=== PATIENT | female | born 1990 ===

== ENCOUNTER → 2020-08-03 12:32 | Outpatient (BNVA) | payer OTHER, SELFPAY | PROVIDERS: Visit Provider Advanced Practice Midwife | DX: Z32.01 Encounter for pregnancy test, result positive (principal) | CPT/HCPCS: 81025; 99202 ==

== ENCOUNTER 2020-08-09 08:44 | Emergency (ER) | payer OTHER, SELFPAY ==
[2020-08-09 08:59] VITALS: PULSE 112; RESP 15; O2SAT 98; BMI 32.9
--- NOTE | 2020-08-09 09:12 | US_ITS ---
EXAMINATION: US FIRST TRIMESTER CLINICAL INFORMATION: Bleeding LMP: Bleeding 06/27/2020 Beta-hCG: Unknown COMPARISON: None available. TECHNIQUE: Transabdominal imaging was performed. FINDINGS: UTERUS AND INTRAUTERINE GESTATIONAL SAC: There is a single intrauterine gestational sac. CROWN-RUMP LENGTH (CRL) : 0.25 cm, estimated age 5 weeks 6 days, estimated date of confinement is 03/26/2021 YOLK SAC: There is a yolk sac. HEART MOTION: 99 BPM. SUBCHORIONIC HEMORRHAGE: None OVARIES: Right: Normal Left: Normal FREE FLUID: None OTHER FINDINGS: None US/US OB <= 14 weeks fetus IMPRESSION: 1. Single live intrauterine . 2. Estimated age 5 weeks 6 days..
--- NOTE | 2020-08-09 09:12 | US_ITS ---
EXAMINATION: US FIRST TRIMESTER CLINICAL INFORMATION: Bleeding LMP: Bleeding 06/27/2020 Beta-hCG: Unknown COMPARISON: None available. TECHNIQUE: Transabdominal imaging was performed. FINDINGS: UTERUS AND INTRAUTERINE GESTATIONAL SAC: There is a single intrauterine gestational sac. CROWN-RUMP LENGTH (CRL) : 0.25 cm, estimated age 5 weeks 6 days, estimated date of confinement is 03/26/2021 YOLK SAC: There is a yolk sac. HEART MOTION: 99 BPM. SUBCHORIONIC HEMORRHAGE: None OVARIES: Right: Normal Left: Normal FREE FLUID: None OTHER FINDINGS: None US/US OB transvaginal IMPRESSION: 1. Single live intrauterine . 2. Estimated age 5 weeks 6 days..
--- NOTE | 2020-08-09 09:42 | ED.PREGNANCY ---
HPI - General Chief complaint: Vaginal Bleeding Stated complaint: vag bleed - 5 weeks preg Time Seen by Provider: 08/09/20 08:51 Source: patient Mode of arrival: ambulatory Limitations: language barrier History of Present Illness HPI Narrative: 30 y/o female G1 who is currently 5 weeks presenting with vaginal bleeding that started this morning. She states she had a sharp pain in her vagina before the bleeding started. She reports the pain is now gone but the bleeding persists. This is her 1st . No vaginal discharge. MD Complaint: vaginal bleeding Onset (ago): hour(s) (3) Pain Consistency: intermittent Location: pelvis Severity: mild Quality: Sharp Relieving factors: none Exacerbating factors: none Associated symptoms: vaginal bleeding Vaginal discharge: none Vaginal bleeding: light Date of Last Menstrual Period: 06/27/20 Patient : Yes Number of Weeks : 5 Related Data Home Medications Medication Instructions Recorded Confirmed omeprazole 20 mg capsule,delayed 20 mg PO DAILY 08/03/20 release Previous Rx's Medication Instructions Recorded vitamin with calcium 1 tab PO DAILY #90 tab 08/03/20 no.72-iron 27 mg-folic acid 1 mg tablet Allergies Allergy/AdvReac Type Severity Reaction Status Date / Time No Known Allergies Allergy Verified 08/03/20 13:47 [No Known Allergies*] Review of Systems Review of Systems: Constitutional: No Fever, No Chills Cardiovascular: No Chest Pain, No SOB, No Orthopnea, No Edema Respiratory: No Cough, No Sputum, No Wheezing, No dyspnea Gastrointestinal: No Nausea, No Vomiting, No Diarrhea, No abdominal Pain Genitourinary: No Dysuria, No Urinary Frequency, No Hematuria, +vaginal bleeding, No vaginal bleeding Musculoskeletal: No joint pain, No Myalgias Skin: No Skin Lesions, No rash Neuro: No Weakness, No Numbness, No Dizziness, No Headache Psych: + Anxiety/Panic, No Depression Heme/Lymph: No Bruising, No Lymphadenopathy PMFSH Past Medical History Medical History Period has come late Positive test Date of Last Menstrual Period: 06/27/20 Family History Family History (Updated 08/03/20 @ 13:49 by Shaunna Bernal CMA) Mother HTN (hypertension) Social History Social History (Updated 08/03/20 @ 14:05 by Shaunna Bernal [facility]) Alcohol intake: never Smoking Status: Never smoker Smoked in Last 30 Days: No Use of substances other than those prescribed or required for medical reasons: No Advance Directives: No Advance Directives Information Provided: Yes Gender identity: female Physical Exam Vital Signs: Vital Signs: Last Vital Signs Pulse 87 08/09/20 10:32 Resp 16 08/09/20 10:32 BP 115/70 08/09/20 10:32 Pulse Ox 99 08/09/20 10:32 Body Mass Index 32.9 Appearance: Alert. Oriented X3. No acute distress. Eyes: Pupils equal, round and reactive to light. ENT: Pharynx normal. Neck: Normal inspection. Neck supple. CVS: Normal heart rate and rhythm. Pulses normal. Respiratory: No respiratory distress. Breath sounds normal. Abdomen: Soft and nontender. +BS x4 Pelvic exam: small amount of blood in vaginal vault, cervical os is closed. no tenderness Skin: Skin warm and dry. Normal skin color. Normal skin turgor. No rashes. Extremities: No lower extremity edema. Neuro: Oriented X 3. No motor deficit. No sensory deficit. Course Course Course Narrative: 30 y/o G1 who is 5-6 weeks presenting with vaginal bleeding. Initially had a sharp pain that was brief and is now resolved. Will get pelvic US and lab work up including quant HCG. Pelvic exam shows cervical os is closed. Reevaluation(s) Reevaluation #1: HCG quant 25,226. Blood type B+. Pelvic U/S showed IUP at 5 weeks 6 days. No pain while in the ER. She is stable for discharge with plan to follow up with her OB this week. Procedures Perimortem Number of Weeks : 5 MDM - OB/Uterine Contractions Lab Data Result diagrams: 08/09/20 09:33 08/09/20 09:33 Labs: Lab Results 08/09/20 08/09/20 08/09/20 Range/Units 09:33 09:33 09:33 WBC 10.2 (4.8-10.8) X10*3/uL RBC 4.32 (4.20-5.50) X10*6/uL Hgb 12.4 (12.0-16.0) g/dl Hct 37.4 (37-47) % MCV 86.6 (80-98) fL MCH 28.7 (27.0-33.0) pg MCHC 33.2 (31.0-35.0) g/dl RDW 12.4 (11.0-16.0) % Plt Count 312 (160-400) X10*3/uL MPV 9.9 (9.4-12.3) fL Immature Gran % (Auto) 0.3 (0.0-0.4) % Neut % (Auto) 77.1 H (45-73) % Lymph % (Auto) 17.3 L (20-40) % [place] % (Auto) 4.3 (2-11) % Eos % (Auto) 0.8 (0-4) % Baso % (Auto) 0.2 (0-2) % Lymph # (Auto) 1.8 (1.2-4.9) X10*3/uL [place] # (Auto) 0.4 (0.1-1.2) X10*3/uL Eos # (Auto) 0.1 (0.0-0.4) X10*3/uL Baso # (Auto) 0.0 (0.0-0.2) X10*3/uL Abs Immat Gran (auto) 0.03 (0.00-0.03) X10*3/uL Absolute Neuts (auto) 7.8 (2.0-8.3) X10*3/uL Absolute Nucleated RBC 0.000 (0.0-0.012) X10*3/uL Nucleated RBC % (auto) 0.0 (0.0-0.2) /100WBC Sodium 137 (135-145) mmol/L Potassium 3.9 (3.3-5.1) mmol/l Chloride 105 (96-108) mmol/L Carbon Dioxide 23 (22-29) mmol/L Anion Gap 13 (12-20) BUN 8 L (9-16) mg/dL Creatinine 0.75 (0.5-1.4) mg/dL Estim Creat Clear Calc 114.9 Estimated GFR > 60 Random Glucose 98 (60-115) mg/dL Calcium 9.3 (8.4-10.2) mg/dL Beta HCG, Quant 72776 mIU/mL Urine Color YELLOW Urine Appearance CLEAR Urine pH 6.5 (5.0-8.0) Ur Specific [place] 1.025 (1.005-1.025) Urine Protein TRACE (NEG-TRACE) MG/DL Urine Glucose (UA) NEG (NEG) MG/DL Urine Ketones NEG (NEG) MG/DL Urine Blood 2+ H (NEG) Urine Nitrite NEG (NEG) Ur Leukocyte Esterase NEG (NEG) Urine RBC 5-9 H (0) /HPF Urine WBC 0-2 (0-4) /HPF Ur Squamous Epith Cells 1+ /LPF Urine Bacteria NONE /LPF Urine Mucus 2+ /LPF Blood Type Antibody Screen 08/09/20 Range/Units 09:33 WBC (4.8-10.8) X10*3/uL RBC (4.20-5.50) X10*6/uL Hgb (12.0-16.0) g/dl Hct (37-47) % MCV (80-98) fL MCH (27.0-33.0) pg MCHC (31.0-35.0) g/dl RDW (11.0-16.0) % Plt Count (160-400) X10*3/uL MPV (9.4-12.3) fL Immature Gran % (Auto) (0.0-0.4) % Neut % (Auto) (45-73) % Lymph % (Auto) (20-40) % [place] % (Auto) (2-11) % Eos % (Auto) (0-4) % Baso % (Auto) (0-2) % Lymph # (Auto) (1.2-4.9) X10*3/uL [place] # (Auto) (0.1-1.2) X10*3/uL Eos # (Auto) (0.0-0.4) X10*3/uL Baso # (Auto) (0.0-0.2) X10*3/uL Abs Immat Gran (auto) (0.00-0.03) X10*3/uL Absolute Neuts (auto) (2.0-8.3) X10*3/uL Absolute Nucleated RBC (0.0-0.012) X10*3/uL Nucleated RBC % (auto) (0.0-0.2) /100WBC Sodium (135-145) mmol/L Potassium (3.3-5.1) mmol/l Chloride (96-108) mmol/L Carbon Dioxide (22-29) mmol/L Anion Gap (12-20) BUN (9-16) mg/dL Creatinine (0.5-1.4) mg/dL Estim Creat Clear Calc Estimated GFR Random Glucose (60-115) mg/dL Calcium (8.4-10.2) mg/dL Beta HCG, Quant mIU/mL Urine Color Urine Appearance Urine pH (5.0-8.0) Ur Specific [place] (1.005-1.025) Urine Protein (NEG-TRACE) MG/DL Urine Glucose (UA) (NEG) MG/DL Urine Ketones (NEG) MG/DL Urine Blood (NEG) Urine Nitrite (NEG) Ur Leukocyte Esterase (NEG) Urine RBC (0) /HPF Urine WBC (0-4) /HPF Ur Squamous Epith Cells /LPF Urine Bacteria /LPF Urine Mucus /LPF Blood Type B Positive Antibody Screen NEGATIVE Discharge Plan Discharge Clinical Impression: First trimester bleeding Patient Disposition: Home, Self-Care Instructions: Threatened Miscarriage (ED), (ED) Additional Instructions: Your exam, lab work and ultrasound were normal today. Bleeding in the 1st trimester can be normal, but it can also indicate a possible miscarriage. Follow up with your OB doctor this week. If you develop recurrent vaginal pain or severe cramping, call your doctor or come back to the ER for further evaluation. Prescriptions: No Action omeprazole 20 mg capsule,delayed release(DR/EC) 20 mg PO DAILY RF: 0 Vitamin Plus Low Iron 27 mg iron- 1 mg tablet 1 tab PO DAILY Qty: 90 RF: 4 Referrals: Edi Jenkins MD [Physician] - 2 days (vaginal bleeding, 6 weeks ) Print Language: Northern Irish
[2020-08-09 09:46] LABS: MANUAL DIFF FLAG NO
[2020-08-09 09:48] LABS: Glucose Urine UA NEG (NEG); Leukocyte Esterase Urine NEG (NEG); Nitrite Urine NEG (NEG); PH 6.5 (5.0-8.0); Specific Gravity - Urine 1.025 (1.005-1.025); Urine Blood 2+ (NEG); Urine Ketones NEG (NEG); Urine Protein TRACE MG/DL (NEG-TRACE)
[2020-08-09 09:49] LABS: Basophils Percent Auto 0.2 % (0-2); Eosinophils Absolute Auto 0.1 X10*3/uL (0.0-0.4); Eosinophils Percent Auto 0.8 % (0-4); Hematocrit 37.4 % (37-47); Hemoglobin 12.4 g/dl (12.0-16.0); Imm Gran Abs Auto 0.03 X10*3/uL (0.00-0.03); Imm Gran Pct Auto 0.3 % (0.0-0.4); Lymphocytes Absolute Auto 1.8 X10*3/uL (1.2-4.9); Lymphocytes Percent Auto 17.3 % (20-40); Mean Corpuscular HGB Conc 33.2 g/dl (31.0-35.0); Mean Corpuscular Hemoglobin 28.7 pg (27.0-33.0); Mean Corpuscular Volume 86.6 fL (80-98); Mean Platelet Volume 9.9 fL (9.4-12.3); Monocytes Absolute Auto 0.4 X10*3/uL (0.1-1.2); Monocytes Percent Auto 4.3 % (2-11); Neutrophils Absolute Auto 7.8 X10*3/uL (2.0-8.3); Neutrophils Percent Auto 77.1 % (45-73); Platelet Count 312 X10*3/uL (160-400); Red Blood Count 4.32 X10*6/uL (4.20-5.50); Red Cell Distribution Width 12.4 % (11.0-16.0); White Blood Count 10.2 X10*3/uL (4.8-10.8)
[2020-08-09 09:55] LABS: Appearance Urine CLEAR; Color Urine YELLOW
[2020-08-09 09:59] LABS: Mucus Urine 2+ /LPF; Squamous Epithelial Cell Urine 1+ /LPF; WBC Urine 0-2 /HPF (0-4)
[2020-08-09 10:07] LABS: Anion Gap 13 (12-20); Blood Urea Nitrogen 8 mg/dL (9-16); Calcium 9.3 mg/dL (8.4-10.2); Carbon Dioxide 23 mmol/L (22-29); Chloride 105 mmol/L (96-108); Creatinine Clr Calc Pharmacy 114.9; Estimated Glomerular Filt Rate > 60; Glucose Random 98 mg/dL (60-115); Potassium 3.9 mmol/l (3.3-5.1); Sodium 137 mmol/L (135-145)
[2020-08-09 10:32] VITALS: BP 115/70; PULSE 87; RESP 16; O2SAT 99
[2020-08-09 11:11] LABS: HCG Quantitative 25226 mIU/mL
[2020-08-09 11:34] VITALS: BP 121/71; PULSE 84; RESP 16; O2SAT 98
== END 2020-08-09 11:39 | disposition home or self-care (01) ==
PROVIDERS: Physician Assistant; Emergency Provider Emergency Medicine; PCP Internal Medicine
DX: O20.9 Hemorrhage in early pregnancy, unspecified (principal); Z3A.01 Less than 8 weeks gestation of pregnancy
CPT/HCPCS: 36415; 76801; 76817; 80048; 81001; 84702; 85025; 86850; 86900; 86901; 99284

== ENCOUNTER → 2020-08-20 08:18 | Outpatient (BNVA) | payer OTHER, SELFPAY | PROVIDERS: PCP Internal Medicine; Visit Provider Advanced Practice Midwife | DX: R10.2 Pelvic and perineal pain (principal) | CPT/HCPCS: 99212 ==

== ENCOUNTER → 2020-09-01 14:21 | Outpatient (BNVA) | payer OTHER, SELFPAY | PROVIDERS: PCP Internal Medicine; Visit Provider Advanced Practice Midwife | DX: Z76.89 Persons encountering health services in other specified circumstances (principal) | CPT/HCPCS: 99212 ==

== ENCOUNTER 2020-09-03 13:39 | Outpatient (REF) | payer OTHER, SELFPAY ==
[2020-09-03 14:21] LABS: MANUAL DIFF FLAG NO
[2020-09-03 14:25] LABS: Basophils Percent Auto 0.3 % (0-2); Eosinophils Absolute Auto 0.1 X10*3/uL (0.0-0.4); Eosinophils Percent Auto 0.9 % (0-4); Hematocrit 36.5 % (37-47); Imm Gran Abs Auto 0.06 X10*3/uL (0.00-0.03); Imm Gran Pct Auto 0.5 % (0.0-0.4); Lymphocytes Absolute Auto 2.4 X10*3/uL (1.2-4.9); Lymphocytes Percent Auto 20.3 % (20-40); Mean Corpuscular HGB Conc 32.9 g/dl (31.0-35.0); Mean Corpuscular Hemoglobin 28.6 pg (27.0-33.0); Mean Corpuscular Volume 86.9 fL (80-98); Mean Platelet Volume 10.1 fL (9.4-12.3); Monocytes Absolute Auto 0.6 X10*3/uL (0.1-1.2); Monocytes Percent Auto 4.8 % (2-11); Neutrophils Absolute Auto 8.5 X10*3/uL (2.0-8.3); Neutrophils Percent Auto 73.2 % (45-73); Platelet Count 281 X10*3/uL (160-400); Red Cell Distribution Width 12.7 % (11.0-16.0); White Blood Count 11.6 X10*3/uL (4.8-10.8)
[2020-09-03 15:15] LABS: Amphetamine Screen Urine Not Detected (Not Detect); Barbiturates, Urine Not Detected (Not Detect); Benzodiazepines Screen Urine Not Detected (Not Detect); Cannabinoid Screen Urine Not Detected (Not Detect); Cocaine Screen Urine Not Detected (Not Detect); Opiate Screen Urine Not Detected (Not Detect); Phencyclidine Screen Urine Not Detected (Not Detect)
[2020-09-04 04:40] LABS: Syphilis Screen Nonreactive (Nonreactive)
[2020-09-04 04:42] LABS: ~HepC Num1 0.13 S/CO (0.00-0.79); ~Hepatitis C Antibody Nonreactive (Nonreactive)
[2020-09-04 04:51] LABS: HIV AB/AG Nonreactive (Nonreactive); HIV Num 1 0.05 S/CO (0.00-0.99); Hepatitis B Surface Antigen Negative (Negative)
[2020-09-04 08:37] LABS: Rubella IgG Antibody 3.42 Index; Varicella IgG Antibody <135.00 index
== END 2020-09-03 13:40 | disposition home or self-care (01) ==
LOC: HO.LAB 13:39
PROVIDERS: PCP Internal Medicine; Visit Provider Advanced Practice Midwife
DX: Z34.90 Encounter for supervision of normal pregnancy, unspecified, unspecified trimester (principal)
CPT/HCPCS: 80307; 85025; 86762; 86780; 86787; 86803; 86850; 86900; 86901; 87086; 87340; 87389

== ENCOUNTER 2020-09-15 14:22 | Outpatient (REF) | payer OTHER, SELFPAY ==
[2020-09-16 19:02] LABS: C. trachomatis RNA TMA NOT DETECTED (NOT DETECTED); N. gonorrhoeae RNA TMA NOT DETECTED (NOT DETECTED)
== END 2020-09-15 14:23 | disposition home or self-care (01) ==
LOC: HO.LAB 14:22
PROVIDERS: PCP Internal Medicine; Visit Provider Advanced Practice Midwife
DX: Z34.91 Encounter for supervision of normal pregnancy, unspecified, first trimester (principal); Z23 Encounter for immunization
CPT/HCPCS: 36415; 81003; 87491; 87591; 99212

== ENCOUNTER 2020-09-18 10:14 | Outpatient (REF) | payer OTHER, SELFPAY ==
--- NOTE | 2020-09-18 10:20 | US_ITS ---
EXAMINATION: OBSTETRICAL ULTRASOUND, FIRST TRIMESTER HISTORY: 30-year-old at 11.6 weeks of gestation NT screening COMPARISON: 08/09/2020 TECHNIQUE: Real time transabdominal imaging with color and M-mode Doppler. FINDINGS: A single, live IUP CRL of 43.5 mm c/w 11.2wks is noted. Heart Rate: 169 beats per minute. Normal yolk sac seen. NT was 1.6.mm. NB Present The embryo appears sonographically wnl for this GA. Both maternal ovaries are seen and appear normal. GESTATIONAL AGE: 1. Established GA: 11.6 wks 2. GA from [facility]: 11.2 wks ESTIMATED DATE OF DELIVERY: 1. Established DANIEL: 04/03/2021 2. DANIEL from [facility]: 04/07/2021 US/US OB 1T nuc measure IMPRESSION: 1. A single live IUP 2. Size equals dates 3. NT 1.6 mm MFM Consultation: I reviewed the ultrasound findings along with significance of NT measurement. The NT of less than 3mm is generally reassuring. However, the sensitivity for T21 detection is only 60%. I reviewed the availability of serum aneuploidy screening which includes cell-free DNA and placental protein based tests. I discussed the sensitivity, false-positive rate, and other limitations associated with each test. I also reviewed the availability of invasive diagnostic tests that are associated small but definite risk of miscarriage. We also reviewed the differences between screening tests and diagnostic tests. After our discussion, she opted for the First trimester screening that is based on cell-free DNA or non-invasive testing (NIPT). The result will be faxed to your office in approximately 7 days. A follow up at 18 weeks for survey has been scheduled. Thank you very much for this referral. Majority of this visit was spent reviewing her care and counselling her in face to face time: Time spent 30 min.
== END 2020-09-18 10:15 | disposition home or self-care (01) ==
LOC: HO.US 10:14
PROVIDERS: Visit Provider Advanced Practice Midwife
DX: O26.90 Pregnancy related conditions, unspecified, unspecified trimester (principal); R10.2 Pelvic and perineal pain; Z3A.00 Weeks of gestation of pregnancy not specified
CPT/HCPCS: 76813

== ENCOUNTER → 2020-10-13 16:28 | Outpatient (BNVA) | payer OTHER, SELFPAY | PROVIDERS: Visit Provider Advanced Practice Midwife | DX: Z76.89 Persons encountering health services in other specified circumstances (principal) | CPT/HCPCS: 99212 ==

== ENCOUNTER 2020-11-06 12:39 | Outpatient (REF) | payer OTHER, SELFPAY ==
--- NOTE | ~2020-11-06 | US_ITS ---
EXAMINATION: US OBSTETRICAL CLINICAL INFORMATION: 30-year-old at 18.6 weeks of gestation Suspected anomaly COMPARISON: 09/18/2020 TECHNIQUE: Real-time transabdominal ultrasound was performed using C1-5 megahertz transducer. FINDINGS: A single, active, fetus is seen in breech presentation. The placenta is anterior without previa, and the amniotic fluid volume is wnl. MEASUREMENTS: 1. Biparietal Diameter: 4.1 cm; 18.3 wks 2. Occipital Frontal Diameter: 5.6 cm 3. Head Circumference: 15.7 cm; 18.5 wks 4. Abdominal Circumference: 13.5 cm; 19.0 wks 5. Femur Length: 2.8 cm; 18.4 wks 6. Humerus Length: 2.75 cm; 18.6 wks 7. Tibia Length: 2.63 cm; 19.3 wks 8. Ulna Length: 2.45 cm; 18.6 wks 9. Lateral ventricle: 0.64 cm 10. Cerebellum: 1.84 cm; 19.1 wks 11. Cisterna Magna: 0.28 cm 12. Nuchal Fold: 2.56 mm 13. Heart Rate: 158 beats per minute Rt ovary: normal Lt ovary: Unable to visualize Cervical length 3.1 cm on T/A. GESTATIONAL AGE: 1. Established GA: 18.6 wks 2. GA from [facility]: 18.5 wks ESTIMATED DATE OF DELIVERY: 1. Established DANIEL: 04/03/2021 2. DANIEL from [facility]: 04/04/2021 ANATOMY: The visualized anatomy includes but not limited to: 1. Cranium: Normal 2. Intracranial anatomy: cavum septum pellucidi, lateral ventricles, choroid plexus, cerebellum, posterior fossa, third and fourth ventricles. 3. face: orbits, lip/palate, profile, nasal bone 4. Heart: four-chamber view of the heart, ventricular septum, foramen ovale, pulmonary vein, left and right outflow tracts, three-vessel view, 3 vessel trachea view, aortic and ductal arches, situs.. 5. Diaphragm: Normal 6. Abdominal wall: Normal 7. Cord Insertion: Normal 8. Spine: Cervical, thoracic, lumbar, sacral. 9. Stomach: Normal size and shape 10. Right Kidney: Normal 11. Left Kidney: Normal 12. 3 vessel cord: Normal 13. Upper extremity: Open hands, fifth digit. 14. Lower extremity: Tibia, fibula, bilateral feet. 15. Bladder: Normal 16. Genitalia: Male, patient not aware US/US OB /maternal detail IMPRESSION: 1. Single, living, intrauterine with appropriate biometry. 2. Normal survey DISCUSSION: I reviewed today's ultrasound findings. We discussed the limitations of ultrasound in diagnosing aneuploidy and other congenital abnormalities. I reviewed the differences between screening test and diagnostic test. Amniocentesis was discussed and declined. She was informed that the baseline incidence of congenital abnormalities is approximately 3-5%. Not all these conditions are diagnosable in utero. RECOMMENDATIONS: 1. Follow-up when necessary Thank you for allowing me to participate in her care. Total time 20 minutes. The time spent was devoted to counseling the patient about the disease and diagnosis, coordinating care including reviewing her records, pertinent lab data and studies, as well as discussing diagnostic evaluation and workup, plan therapeutic interventions and future disposition of care. This includes any additional research needed to obtain further information in formulating the plan of care of this patient. This note was generated with a voice recognition program. Please excuse any errors which may have been overlooked during my review of this note. Sometimes these errors may affect the content or meaning of a given sentence.
== END 2020-11-06 12:40 | disposition home or self-care (01) ==
LOC: HO.US 12:39
PROVIDERS: Visit Provider Advanced Practice Midwife
DX: O35.9XX0 Maternal care for (suspected) fetal abnormality and damage, unspecified, not applicable or unspecified (principal); Z3A.18 18 weeks gestation of pregnancy
CPT/HCPCS: 76811

== ENCOUNTER 2020-11-08 19:07 | Emergency (ER) | payer OTHER, SELFPAY ==
[2020-11-08 20:04] VITALS: BP 112/54; PULSE 98; RESP 14; TEMP 36.9; O2SAT 98
[2020-11-08 20:11] VITALS: BP 112/54; PULSE 98; RESP 17; TEMP 36.9; O2SAT 98; BMI 31.8
--- NOTE | 2020-11-08 20:34 | ED.ALLEREA ---
HPI - Allergic Reaction General Chief complaint: Allergic Reaction Stated complaint: RASH Time Seen by Provider: 11/08/20 20:33 Source: patient Mode of arrival: ambulatory History of Present Illness HPI narrative: Patient to the ED for allergic reaction. Patient states after eating [facility] chicken and ice cream hours ago also and started having hives/itchy rash on her bilateral arms, legs, chest, and back. Patient states rash is improving but came to the ED to be evaluated. Patient denies any swelling of lips or swelling of tongue. Patient denies any shortness of breath. Related Data Home Medications Medication Instructions Recorded Confirmed omeprazole 20 mg capsule,delayed 20 mg PO DAILY 08/03/20 09/01/20 release Previous Rx's Medication Instructions Recorded vitamin with calcium 1 tab PO DAILY #90 tab 08/03/20 no.72-iron 27 mg-folic acid 1 mg tablet ondansetron HCl 4 mg tablet 4 mg PO Q6H PRN #30 tab 10/13/20 Allergies Allergy/AdvReac Type Severity Reaction Status Date / Time No Known Allergies Allergy Verified 10/13/20 16:29 [No Known Allergies*] Review of Systems Review of Systems: Yes all other systems are reviewed and are negative Constitutional: Constitutional: Reports as per HPI and Reports no additional constitutional complaints Eyes: Eyes: Reports as per HPI and Reports no additional eye complaints ENT: Reports system reviewed and no additional complaints, except as documented and Reports as per HPI Cardiovascular: Cardiovascular: Reports as per HPI and Reports no additional cardiovascular complaints Respiratory: Respiratory: Reports as per HPI and Reports no additional respiratory complaints Gastrointestinal: Gastrointestinal: Reports as per HPI and Reports no additional gastrointestinal complaints Genitourinary: Genitourinary: Reports no additional female genitourinary complaints and Reports as per HPI Musculoskeletal: Musculoskeletal: Reports no additional musculoskeletal complaints and Reports as per HPI Comments: Itchy rash Integumentary/Breasts: Skin/Breast: Reports system reviewed and no additional complaints, except as docu and Reports as per HPI Neurologic: Reports system reviewed and no additional complaints, except as documented and Reports as per HPI Psychiatric: Psychiatric: Reports no additional psychiatric complaints COUNT INCLUDES THE [facility] Past Medical History Medical History Period has come late Positive test Family History Family History Mother HTN (hypertension) Social History Social History Household Members: Spouse and Family Alcohol intake: never Smoking Status: Never smoker Advance Directives: No Advance Directives Information Provided: No Gender identity: female Physical Exam Vital Signs: Vital Signs: Last Vital Signs Temp 98.4 F 11/08/20 20:11 Pulse 98 11/08/20 20:11 Resp 17 11/08/20 20:11 BP 112/54 L 11/08/20 20:11 Pulse Ox 98 11/08/20 20:11 Body Mass Index 31.8 Const: General: cooperative, healthy appearing, comfortable, no acute distress, well developed, alert, awake and Physically active Orientation/consciousness: patient oriented x3 HENMT: Other: Negative for swelling of lips, tongue, uvula. Head: Yes normal to inspection, Yes No palpable skull fracture present, Yes normocephalic, Yes atraumatic, No abrasion, No Acrocyanosis present, No Hung's sign, No contusion, No cranial bruits, No hematoma, No occipital foramen tenderness, No palpable skull fracture, No raccoon eyes, No scalp lesion, No scalp tenderness, No Temporal artery tenderness present and No periorbital ecchymosis Eyes: General: appearance normal, both eyes and all related structures Neck: Neck: Yes normal visual inspection, Yes full ROM, Yes no lymphadenopathy, Yes no meningeal signs, Yes trachea midline, Yes supple and No tender Chest: Chest palpation & inspection: normal inspection of the chest and normal palpation of entire chest wall Resp: Effort & Inspection: normal respiratory effort and able to speak in complete sentences Auscultation: clear to auscultation bilaterally Cardio: Jugular venous distension: no JVD Heart sounds: S1 normal heart sound present and S2 normal heart sound present GI: Inspection: Yes normal to inspection and No abdominal wall ecchymosis Palpation (GI): Soft to palpation, not firm, nontender, no guarding and not rigid : General: No CVA tenderness and Yes no CVA tenderness Back/Spine/Pelvis: Back: no CVA tenderness, No CVA tenderness and No back tenderness Skin: Other: Improving you to uticaria rash of lower extremities, upper arms,, and back. Neuro: General: patient oriented x3, no meningeal signs and CN's II-XI intact bilaterally Cranial nerves: Yes CN's II-XII intact bilaterally Extrem: General: Yes normal to inspection and Yes full ROM Psych: Appearance: grossly normal, well kempt and not disheveled Course Course Course Narrative: Patient will be given allergic cocktail of Benadryl, prednisone, Pepcid. Patient informed slight risk medication crossto placenta but is agreeable to take medication. Patient informed which treating her to make sure the allergic reaction does not lead to a respiratory emergency. Patient is agreeable taking medication Reevaluation(s) Reevaluation #1: Patient refused Benadryl, prednisone, and Pepcid. She changed her mind. Patient for medication was ordered to make sure allergies does not worsen and lead to anaphylaxis reaction. Patient informed from respiratory compromise. job specification writer was present. Patient understood the risk and agreeable to sign against medical advice. Patient informed to return to the ED immediately if she has any signs of swelling of lips, throat closing, shortness of breath. Patient was again 5 months and denies any turkish rubber complaints. Patient denies any abdominal pain or vaginal bleeding Time: 21:05 Discharge Plan Discharge Clinical Impression: Allergic reaction Patient Disposition: Left Against Medical Advice Instructions: General Allergic Reaction (ED) Additional Instructions: Regrese al servicio de urgencias si tiene hinchaz?n de los labios, hinchaz?n de la lengua, sensaci?n de cierre de la garganta, dificultad para respirar, empeoramiento de la erupci?n, fiebre, escalofr?os o cualquier otro s?ntoma que le preocupe. Prescriptions: No Action flu vacc [id number] 6mos up(PF) 60 mcg (15 mcg x 4)/0.5 mL syringe 0.5 ml IM ONCE Qty: 0.5 RF: 0 omeprazole 20 mg capsule,delayed release(DR/EC) 20 mg PO DAILY RF: 0 Vitamin Plus Low Iron 27 mg iron- 1 mg tablet 1 tab PO DAILY Qty: 90 RF: 4 ondansetron HCl [Zofran] 4 mg tablet 4 mg PO Q6H PRN (Reason: nausea and vomiting) Qty: 30 RF: 0 Referrals: Delfina Marie MD [Primary Care Provider] - 2 days (Allergic reaction.) Stand Alone Forms: Against Medical Advice Interventions: ED Discharge Assessment Last Done: 11/08/20 21:15 Discharge Date/Time: 11/08/20 21:15 Print Language: Mozambican
== END 2020-11-08 21:15 | disposition left against medical advice (07) ==
PROVIDERS: Emergency Provider Internal Medicine; PCP Internal Medicine
DX: O26.892 Other specified pregnancy related conditions, second trimester (principal); T78.1XXA Other adverse food reactions, not elsewhere classified, initial encounter; R21 Rash and other nonspecific skin eruption; X58.XXXA Exposure to other specified factors, initial encounter; Z3A.00 Weeks of gestation of pregnancy not specified
CPT/HCPCS: 99284

== ENCOUNTER → 2020-11-10 11:56 | Outpatient (BNVA) | payer OTHER, SELFPAY | PROVIDERS: Visit Provider Advanced Practice Midwife | CPT/HCPCS: 99212 ==

== ENCOUNTER → 2020-12-14 13:22 | Outpatient (BNVA) | payer OTHER, SELFPAY | PROVIDERS: Visit Provider Advanced Practice Midwife | DX: Z34.82 Encounter for supervision of other normal pregnancy, second trimester (principal); Z3A.24 24 weeks gestation of pregnancy | CPT/HCPCS: 81003; 99212 ==

== ENCOUNTER 2021-01-11 09:55 | Outpatient (REF) | payer OTHER, SELFPAY ==
[2021-01-11 13:35] LABS: Glucose 1 Hour PP 50gm Dose 104 mg/dL (60-140)
[2021-01-11 13:42] LABS: Hematocrit 31.5 % (37-47); Hemoglobin 10.2 g/dl (12.0-16.0); Mean Corpuscular HGB Conc 32.4 g/dl (31.0-35.0); Mean Corpuscular Volume 92.6 fL (80-98); Mean Platelet Volume 10.4 fL (9.4-12.3); Platelet Count 285 X10*3/uL (160-400); Red Cell Distribution Width 13.3 % (11.0-16.0); White Blood Count 10.1 X10*3/uL (4.8-10.8)
[2021-01-11 14:09] LABS: Syphilis Screen Nonreactive (Nonreactive)
== END 2021-01-11 09:56 | disposition home or self-care (01) ==
LOC: HO.LAB 09:55
PROVIDERS: PCP Internal Medicine; Visit Provider Advanced Practice Midwife
DX: O21.9 Vomiting of pregnancy, unspecified (principal); Z3A.28 28 weeks gestation of pregnancy; Z79.899 Other long term (current) drug therapy; Z86.16 Personal history of COVID-19
CPT/HCPCS: 36415; 81003; 85027; 86780; 99212

== ENCOUNTER → 2021-01-25 09:51 | Outpatient (BNVA) | payer OTHER, SELFPAY | PROVIDERS: PCP Internal Medicine; Visit Provider Advanced Practice Midwife | DX: Z34.93 Encounter for supervision of normal pregnancy, unspecified, third trimester (principal); Z3A.30 30 weeks gestation of pregnancy | CPT/HCPCS: 81003; 99212 ==

== ENCOUNTER → 2021-02-08 12:16 | Outpatient (BNVA) | payer OTHER, SELFPAY | PROVIDERS: PCP Internal Medicine; Visit Provider Advanced Practice Midwife | DX: Z34.93 Encounter for supervision of normal pregnancy, unspecified, third trimester (principal); Z3A.32 32 weeks gestation of pregnancy | CPT/HCPCS: 81003; 99212 ==

== ENCOUNTER → 2021-02-23 10:14 | Outpatient (BNVA) | payer OTHER, SELFPAY | PROVIDERS: PCP Internal Medicine; Visit Provider Advanced Practice Midwife | DX: Z34.93 Encounter for supervision of normal pregnancy, unspecified, third trimester (principal); Z3A.34 34 weeks gestation of pregnancy | CPT/HCPCS: 81003; 99212 ==

== ENCOUNTER 2021-03-10 10:04 | Outpatient (REF) | payer OTHER, SELFPAY ==
[2021-03-11 04:12] LABS: CT PCR NOT DETECTED (Not Detect.); NG PCR NOT DETECTED (Not Detect.)
== END 2021-03-10 10:05 | disposition home or self-care (01) ==
LOC: HO.LAB 10:04
PROVIDERS: PCP Internal Medicine; Visit Provider Advanced Practice Midwife
DX: Z34.93 Encounter for supervision of normal pregnancy, unspecified, third trimester (principal)
CPT/HCPCS: 81003; 87081; 87147; 87491; 87591; 99212

== ENCOUNTER → 2021-03-18 10:03 | Outpatient (BNVA) | payer OTHER, SELFPAY | PROVIDERS: PCP Internal Medicine; Visit Provider Advanced Practice Midwife | DX: O99.213 Obesity complicating pregnancy, third trimester (principal); E66.09 Other obesity due to excess calories; O99.013 Anemia complicating pregnancy, third trimester; D50.9 Iron deficiency anemia, unspecified; Z3A.37 37 weeks gestation of pregnancy | CPT/HCPCS: 90471; 90715; 99212 ==

== ENCOUNTER → 2021-03-25 08:08 | Outpatient (BNVA) | payer OTHER, SELFPAY | PROVIDERS: PCP Internal Medicine; Visit Provider Advanced Practice Midwife | DX: O99.213 Obesity complicating pregnancy, third trimester (principal); E66.09 Other obesity due to excess calories; O99.013 Anemia complicating pregnancy, third trimester; D50.0 Iron deficiency anemia secondary to blood loss (chronic); Z3A.38 38 weeks gestation of pregnancy | CPT/HCPCS: 59025; 99212 ==

== ENCOUNTER → 2021-04-01 09:10 | Outpatient (BNVA) | payer OTHER, SELFPAY | PROVIDERS: PCP Internal Medicine; Visit Provider Advanced Practice Midwife | DX: Z34.03 Encounter for supervision of normal first pregnancy, third trimester (principal); Z3A.39 39 weeks gestation of pregnancy | CPT/HCPCS: 99212 ==

== ENCOUNTER → 2021-04-08 10:13 | Outpatient (BNVA) | payer OTHER, SELFPAY | PROVIDERS: Visit Provider Advanced Practice Midwife | DX: Z34.03 Encounter for supervision of normal first pregnancy, third trimester (principal); Z3A.40 40 weeks gestation of pregnancy | CPT/HCPCS: 99212 ==

== ENCOUNTER → 2021-04-28 08:29 | Outpatient (BNVA) | payer OTHER, SELFPAY | PROVIDERS: PCP Internal Medicine; Visit Provider Obstetrics & Gynecology | DX: Z98.890 Other specified postprocedural states (principal) | CPT/HCPCS: 99212 ==

== ENCOUNTER 2021-06-07 11:36 | Outpatient (REF) | payer OTHER, SELFPAY ==
[2021-06-08 03:27] LABS: CT PCR NOT DETECTED (Not Detect.); NG PCR NOT DETECTED (Not Detect.)
== END 2021-06-07 11:37 | disposition home or self-care (01) ==
LOC: HO.LAB 11:36
PROVIDERS: PCP Internal Medicine; Visit Provider Obstetrics & Gynecology
DX: Z39.2 Encounter for routine postpartum follow-up (principal)
CPT/HCPCS: 87491; 87591; 99212

== ENCOUNTER 2021-07-22 08:35 | Outpatient (REF) | payer OTHER, SELFPAY ==
[2021-07-22 09:47] LABS: MANUAL DIFF FLAG NO
[2021-07-22 10:16] LABS: Basophils Percent Auto 0.3 % (0-2); Eosinophils Absolute Auto 0.2 X10*3/uL (0.0-0.4); Eosinophils Percent Auto 2.2 % (0-4); Hematocrit 37.1 % (37.0-47.0); Hemoglobin 11.4 g/dl (12.0-16.0); Imm Gran Abs Auto 0.02 X10*3/uL (0.00-0.03); Imm Gran Pct Auto 0.3 % (0.0-0.4); Lymphocytes Percent Auto 28.2 % (20-40); Mean Corpuscular HGB Conc 30.7 g/dl (31.0-35.0); Mean Corpuscular Hemoglobin 25.2 pg (27.0-33.0); Mean Corpuscular Volume 82.1 fL (80.0-98.0); Monocytes Absolute Auto 0.3 X10*3/uL (0.1-1.2); Neutrophils Absolute Auto 4.5 x10*3/uL (2.0-8.3); Platelet Count 322 X10*3/uL (160-400); Red Blood Count 4.52 X10*6/uL (4.20-5.50); Red Cell Distribution Width 14.3 % (11.0-16.0)
[2021-07-22 10:47] LABS: Alanine Aminotransferase 56 U/L (0-31); Albumin Level 4.4 g/dL (3.5-5.0); Alkaline Phosphatase 154 U/L (39-117); Anion Gap 11 (12-20); Aspartate Amino Transferase 32 U/L (5-31); Bilirubin Total 0.3 mg/dL (0.0-1.0); Blood Urea Nitrogen 13 mg/dL (9-16); Calcium 9.7 mg/dL (8.4-10.2); Carbon Dioxide 26 mmol/L (22-29); Chloride 107 mmol/L (96-108); Cholesterol 143 mg/dL; Estimated Glomerular Filt Rate > 60; Glucose Fasting 102 mg/dL (60-99); HDL Cholesterol 34 mg/dL; Iron 34 mcg/dL (30-160); LDL Cholesterol Calculated 86 mg/dl; Percent Iron Saturation 9 % (15-50); Potassium 4.3 mmol/L (3.3-5.1); Sodium 140 mmol/L (135-145); Total Iron Binding Capacity 366 mcg/dL (228-428); Total Protein 7.4 g/dL (6.5-8.0); Triglycerides 118 mg/dL; Unsaturated Iron Binding 332 ug/dL
[2021-07-26 15:01] LABS: Vitamin D 25-OH, D2 <4 ng/mL; Vitamin D 25-OH, D3 13 ng/mL; Vitamin D 25-OH, Total 13 ng/mL (30-100)
== END 2021-07-22 08:36 | disposition home or self-care (01) ==
LOC: HO.LAB 08:35
PROVIDERS: Absent Provider Internal Medicine; PCP Internal Medicine; Visit Provider Obstetrics & Gynecology
DX: Z30.430 Encounter for insertion of intrauterine contraceptive device (principal); D64.9 Anemia, unspecified; E66.9 Obesity, unspecified; E78.5 Hyperlipidemia, unspecified; E55.9 Vitamin D deficiency, unspecified
CPT/HCPCS: 36415; 58300; 80053; 80061; 82306; 83540; 85025

== ENCOUNTER 2021-09-02 08:56 | Outpatient (REF) | payer OTHER, SELFPAY ==
--- NOTE | ~2021-09-02 | US_ITS ---
EXAMINATION: US ABDOMEN LIMITED WITH LIVER ELASTOGRAPHY CLINICAL INFORMATION: Elevation of liver transaminase levels. COMPARISON: CT abdomen and pelvis 03/24/2019 TECHNIQUE: Real-time imaging of the abdominal viscera. Noninvasive ultrasound liver fibrosis assessment was performed using Layla ElastPQ point quantification shear wave elastography (2D-SWE) with a C5-2 MHz transducer. Multiple elastography samples were obtained. FINDINGS: PANCREAS: Normal. The visualized pancreatic head and body are normal in appearance. The remainder of the pancreas is obscured from visualization by the overlying bowel gas. LIVER: Normal. The liver demonstrates normal size, contour and echogenicity. No focal lesion or intrahepatic biliary duct dilatation. The right lobe measures 17.4 cm in length. The left lobe measures 9.2 cm in length. Portal flow is hepatopetal. Shear wave liver elastography median stiffness is 1.30 m/s (reference: Normal median stiffness is 1.3 m/s or less). IQR/median stiffness to assess sampling precision is 0.07 (reference: Good quality data set is IQR/median stiffness of 0.15 or less). GALLBLADDER: Normal. The gallbladder is physiologically distended without evidence of stones, sludge, polyps, wall thickening or pericholecystic fluid. COMMON BILE DUCT: Normal in caliber measuring 0.3 cm in diameter. RIGHT KIDNEY: Normal. No hydronephrosis. No renal calculi or focal parenchymal lesions. The kidney measures 10.3 cm in maximum dimension. FREE FLUID: None. US/US abdomen mayo w elastography IMPRESSION: 1. Unremarkable abdomen ultrasound. 2. Liver Elastography: Median liver stiffness 1.30, corresponds to a high probability for normal. REFERENCE: Society of Radiologists in Ultrasound Liver Stiffness Thresholds (2020): LIVER STIFFNESS THRESHOLDS: *Liver Stiffness equal or less than 1.3 m/s: High probability of being normal. *Liver Stiffness less than 1.7 m/s: In the absence of other known clinical signs, rules out compensated advanced chronic liver disease. *Liver Stiffness 1.7-2.1 m/s: Suggestive of compensated advanced chronic liver disease but need further test for confirmation. *Liver Stiffness over 2.1 m/s: Rules in compensated advanced chronic liver disease. *Liver Stiffness over 2.4 m/s: Suggestive of clinically significant portal hypertension. QUALITY OF DATA SET: *IQR/Median value equal or less than 0.15 implies a quality data set. *IQR/Median value over 0.15 implies a poor quality data set. SIGNIFICANT CHANGE FROM PRIOR EXAM: Significant change if liver stiffness measurement is 10% or greater from prior exam. OTHER CONSIDERATIONS: The stage of liver fibrosis may be overestimated in the setting of acute hepatitis, liver inflammation, elevated liver function tests, hepatic vascular congestion, obstructive cholestasis, non-fasting state, and infiltrative diseases such as amyloidosis and lymphoma. In some patients with NAFLD, the liver stiffness thresholds for compensated advanced chronic liver disease may be lower. In causes other than viral hepatitis and NAFLD, liver stiffness thresholds are not well established.
== END 2021-09-02 08:57 | disposition home or self-care (01) ==
LOC: HO.US 08:56
PROVIDERS: PCP Internal Medicine; Visit Provider Internal Medicine
DX: R74.01 Elevation of levels of liver transaminase levels (principal)
CPT/HCPCS: 76705; 76981

== ENCOUNTER 2021-09-09 10:08 | Outpatient (REF) | payer OTHER, SELFPAY ==
[2021-09-09 11:56] LABS: HBsAGNum1 0.23 S/CO (0.00-0.99); HIV AB/AG Nonreactive (Nonreactive); HIV Num 1 0.11 S/CO (0.00-0.99); Hepatitis B Surface Antigen Negative (Negative); ~HepC Num1 0.13 S/CO (0.00-0.79); ~Hepatitis C Antibody Nonreactive (Nonreactive)
[2021-09-09 15:57] LABS: CT PCR NOT DETECTED (Not Detect.); NG PCR NOT DETECTED (Not Detect.)
[2021-09-10 08:19] LABS: Syphilis Screen Nonreactive (Nonreactive)
[2021-09-10 08:56] LABS: BV Int Neg Control Negative (Negative); BV Int Pos Control Positive (Positive)
== END 2021-09-09 10:09 | disposition home or self-care (01) ==
LOC: HO.LAB 10:08
PROVIDERS: PCP Internal Medicine; Visit Provider Obstetrics & Gynecology
DX: N76.0 Acute vaginitis (principal); R10.2 Pelvic and perineal pain; Z11.3 Encounter for screening for infections with a predominantly sexual mode of transmission; Z11.8 Encounter for screening for other infectious and parasitic diseases; Z11.4 Encounter for screening for human immunodeficiency virus [HIV]; Z11.59 Encounter for screening for other viral diseases; E55.9 Vitamin D deficiency, unspecified; D50.9 Iron deficiency anemia, unspecified; E66.9 Obesity, unspecified; Z68.33 Body mass index [BMI] 33.0-33.9, adult; Z97.5 Presence of (intrauterine) contraceptive device
CPT/HCPCS: 36415; 86780; 86803; 87340; 87389; 87480; 87491; 87510; 87591; 87660; 99212

== ENCOUNTER 2021-10-05 10:15 | Outpatient (REF) | payer OTHER, SELFPAY ==
--- NOTE | ~2021-10-05 | US_ITS ---
EXAMINATION: US PELVIS CLINICAL INFORMATION: Pelvic and perineal pain COMPARISON: Previous CT of the abdomen and pelvis March 2019 TECHNIQUE: Ultrasound of the pelvis is performed using both transabdominal and transvaginal transducers along with Doppler. Transvaginal imaging is performed due to inadequate visualization transabdominally. FINDINGS: The uterus is anteverted and retroflexed and measures 7.7 x 3.7 x 5 cm in dimension. There is an IUD in the uterus. This is difficult to visualize due to the orientation of the uterus but appears in satisfactory position. No focal uterine lesion is seen. Endometrial thickness is normal measuring 0.2 cm. No focal uterine lesion is seen. The cervix is normal appearing. The ovaries are normal in size. The right ovary measures 2.1 x 2.6 x 1.6 cm. The left ovary measures 2 x 2.8 x 1.4 cm. There are multiple small simple cysts or follicles in both ovaries all measuring less than 1 cm. There is no fluid in the pelvis. US/US pelvic and transvaginal IMPRESSION: IUD is difficult to visualize due to the orientation of the uterus but appears in satisfactory position. Normal-appearing ovaries.
== END 2021-10-05 10:16 | disposition home or self-care (01) ==
LOC: HO.US 10:15
PROVIDERS: PCP Internal Medicine; Visit Provider Obstetrics & Gynecology
DX: R10.2 Pelvic and perineal pain (principal)
CPT/HCPCS: 76830; 76856

== ENCOUNTER → 2021-10-19 11:39 | Outpatient (BNVA) | payer OTHER, SELFPAY | PROVIDERS: Visit Provider Obstetrics & Gynecology ==

== ENCOUNTER 2022-03-16 07:49 | Outpatient (REF) | payer OTHER, SELFPAY ==
[2022-03-16 08:28] LABS: MANUAL DIFF FLAG NO
[2022-03-16 08:47] LABS: Basophils Percent Auto 0.3 % (0-2); Eosinophils Absolute Auto 0.1 X10*3/uL (0.0-0.4); Hematocrit 40.2 % (37.0-47.0); Hemoglobin 13.1 g/dl (12.0-16.0); Imm Gran Abs Auto 0.04 X10*3/uL (0.00-0.03); Imm Gran Pct Auto 0.4 % (0.0-0.4); Lymphocytes Absolute Auto 2.4 X10*3/uL (1.2-4.9); Lymphocytes Percent Auto 24.3 % (20-40); Mean Corpuscular HGB Conc 32.6 g/dl (31.0-35.0); Mean Corpuscular Hemoglobin 27.8 pg (27.0-33.0); Mean Corpuscular Volume 85.4 fL (80.0-98.0); Mean Platelet Volume 10.1 fL (9.4-12.3); Monocytes Absolute Auto 0.5 X10*3/uL (0.1-1.2); Monocytes Percent Auto 4.6 % (2-11); Neutrophils Absolute Auto 6.7 x10*3/uL (2.0-8.3); Neutrophils Percent Auto 69.4 % (45-73); Platelet Count 287 X10*3/uL (160-400); Red Blood Count 4.71 X10*6/uL (4.20-5.50); Red Cell Distribution Width 13.1 % (11.0-16.0); White Blood Count 9.7 X10*3/uL (4.8-10.8)
[2022-03-16 09:35] LABS: Alanine Aminotransferase 48 U/L (0-31); Albumin Level 4.7 g/dL (3.5-5.0); Alkaline Phosphatase 174 U/L (39-117); Aspartate Amino Transferase 22 U/L (5-31); Bilirubin Direct 0.2 mg/dL (0.0-0.5); Bilirubin Total 0.4 mg/dL (0.0-1.0); Iron 70 mcg/dL (30-160); Percent Iron Saturation 18 % (15-50); Total Iron Binding Capacity 387 mcg/dL (228-428); Total Protein 7.9 g/dL (6.5-8.0); Unsaturated Iron Binding 317 ug/dL
[2022-03-22 15:52] LABS: Vitamin D 25-OH, D2 5 ng/mL; Vitamin D 25-OH, D3 15 ng/mL; Vitamin D 25-OH, Total 20 ng/mL (30-100)
== END 2022-03-16 07:50 | disposition home or self-care (01) ==
LOC: HO.LAB 07:49
PROVIDERS: PCP Internal Medicine; Visit Provider Internal Medicine
DX: E55.9 Vitamin D deficiency, unspecified (principal); D64.9 Anemia, unspecified; R74.01 Elevation of levels of liver transaminase levels
CPT/HCPCS: 36415; 80076; 82306; 83540; 85025

== ENCOUNTER 2022-06-12 19:46 | Emergency (ER) | payer OTHER, SELFPAY ==
[2022-06-12 20:56] VITALS: BP 124/78; PULSE 87; RESP 18; TEMP 36.3; O2SAT 98; BMI 33.7
[2022-06-12] MEDS: Acetaminophen 325 MG TABLET 650 MG PO (21:08)
[2022-06-12 21:11] LABS: Glucose, Whole Blood 89 mg/dL (60-115)
--- NOTE | 2022-06-13 00:13 | ED.WOUNDLAC ---
HPI - Wound/Laceration General Chief Complaint: Wound/Laceration Stated Complaint: Hand lac Time Seen by Provider: 06/12/22 23:40 Source: patient Mode of arrival: ambulatory Limitations: no limitations History of Present Illness HPI narrative: 31-year-old female presents to the emergency department with laceration to her left hand right below the 5th digit. Patient tells me that she cut her hand with the serrated edge of the lumen foil blocks. She tells me that this happened around 6 or 19:00. Patient tells me initially the area was bleeding a lot however has stopped. Patient is up-to-date on a tetanus shot. Denies numbness or tingling. Related Data Home Medications Medication Instructions Recorded Confirmed omeprazole 20 mg capsule,delayed 20 mg PO DAILY 08/03/20 03/17/22 release Previous Rx's Medication Instructions Recorded cholecalciferol (vitamin D3) 50 50 mcg PO DAILY 90 days #90 caps 03/22/22 mcg (2,000 unit) capsule Allergies Allergy/AdvReac Type Severity Reaction Status Date / Time No Known Allergies Allergy Verified 06/12/22 20:55 [No Known Allergies*] Review of Systems Review of Systems: Constitutional : No Fever, No Chills, Cardiovascular : No Chest Pain, No SOB Respiratory : No Dyspnea Gastrointestinal : No abdominal pain Musculoskeletal : No Joint Swelling Skin : No rash, positive skin laceration Neuro : No Weakness, No Numbness Psych : No SI/HI Yes all other systems are reviewed and are negative FORMERLY [facility] Past Medical History Attestation statement: The following information was validated with the patient. Source: old records reviewed and nursing notes reviewed Medical History COVID-19 Hypovitaminosis D Iron deficiency anemia Obese Period has come late Positive test Transaminitis Surgical History History of Family History Family History Mother HTN (hypertension) Father No problems noted. Social History Social History Household Members: Spouse and Family Housing: Apartment Alcohol intake: never Patient Tobacco Use Status: Never used Tobacco e-Cigarette/Vaping Use: Never Used Second Hand Smoke Exposure: No Advance Directives: No Advance Directives Information Provided: No service: No Current occupational status: employed Current occupational exposures/hazards: No Gender identity: Female Cognitive needs: No Hearing needs: No Vision needs: No Physical Exam Vital Signs: Vital Signs: Last Vital Signs Temp 97.3 F 06/12/22 20:56 Pulse 87 06/12/22 20:56 Resp 18 06/12/22 20:56 BP 124/78 06/12/22 20:56 Pulse Ox 98 06/12/22 20:56 O2 Del Method 06/12/22 20:56 BMI result Body Mass Index 33.7 vss Appearance: Alert.? Oriented X3.? No acute distress.? Head: Normocephalic, atraumatic, no step-offs or deformities Eyes: Pupils equal, round and reactive to light.? Neck: Normal inspection.? Neck supple.? CVS: Normal heart rate and rhythm.? Pulses normal.? Respiratory: No respiratory distress.? Breath sounds normal.? Abdomen: Soft and nontender.? Skin: Skin warm and dry.? Normal skin color.? Normal skin turgor.?+ laceration to the left hand 3.5 cm superficial no fb. 2+ radial pulses equal and b/l. 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 Full rom to all fingers. Extremities: No lower extremity edema.? No calf ttp. 5/5 strength to bilateral upper and lower extremities Neuro: Oriented X 3.? No motor deficit.? No sensory deficit. CN 2-12 intact Course Reevaluation(s) Reevaluation #1: Area successfully Dermabonded. Advised patient to keep splint on for 1 day. Educated to come back with new or worsening symptoms. At this time I feel comfortable discharge home Time: 00:43 MDM - Wound/Laceration MDM Narrative Medical decision making narrative: 0005 31-year-old female presents with laceration to the left hand herself with a serrated edge of the aluminum Foil box. Up-to-date on tetanus shot. Physical examination with a superficial cut to the left hand. Neurovascularly intact no signs of foreign body Plan at this time is a Dermabond the area and apply a finger splint. Medical Records Attestation: I reviewed the patient's medical records. Lab Data Attestation: I reviewed the patient's lab results. Labs: Lab Results 06/12/22 Range/Units 21:08 POC Glucose 89 (60-115) mg/dL Critical Care Time Critical Care Time Critical Care Time: No Discharge Plan Discharge Clinical Impression: Laceration Patient Disposition: Home, Self-Care Additional Instructions: Take your medications as prescribed. If you were prescribed antibiotics today, it is important that you take your medication to their entirety, do not skip any doses, do not finish them early. Follow-up with your primary care provider this week. Return to the emergency department with new or worsening symptoms. Such as fevers, chills, chest pain, shortness of breath, nausea, vomiting, dizziness, headache, vision changes, lethargy, numbness, tingling Keep the finger splint on just for 1 day. In case of emergency call 911 Prescriptions: No Action cholecalciferol (vitamin D3) 50 mcg (2,000 unit) capsule 50 mcg PO DAILY 90 Days Qty: 90 1RF flu vacc [id number] 6mos up(PF) 60 mcg (15 mcg x 4)/0.5 mL syringe 0.5 ml IM ONCE Qty: 0.5 0RF omeprazole 20 mg capsule,delayed release(DR/EC) 20 mg PO DAILY Referrals: Delfina Marie MD [Primary Care Provider] - 2 days Stand Alone Forms: Work/School Release
--- NOTE | 2022-06-13 00:33 | PC.NURSE ---
pt a&o,no sob or chest pain , postive cms to digits . Reviewed discharge instructions with pt. pt verbalized understanding.
--- NOTE | 2022-06-13 00:35 | PC.NURSE ---
d/c vital signs 98.2 oral temp 117/65 70 pulse 98%room air
== END 2022-06-13 00:58 | disposition home or self-care (01) ==
PROVIDERS: Emergency Provider Internal Medicine; PCP Internal Medicine
DX: S61.217A Laceration without foreign body of left little finger without damage to nail, initial encounter (principal); W26.9XXA Contact with unspecified sharp object(s), initial encounter; Y93.9 Activity, unspecified; Y92.9 Unspecified place or not applicable; Y99.9 Unspecified external cause status; Z79.899 Other long term (current) drug therapy
CPT/HCPCS: 12001; 29130; 82947; 96372; 99284

== ENCOUNTER 2022-08-08 11:04 | Outpatient (REF) | payer OTHER, SELFPAY ==
[2022-08-10 01:34] LABS: HPV mRNA E6/E7 rflx Not Detected (Not Detected)
== END 2022-08-08 11:05 | disposition home or self-care (01) ==
LOC: HO.LNP 11:04
PROVIDERS: Visit Provider Advanced Practice Midwife
DX: Z30.432 Encounter for removal of intrauterine contraceptive device (principal); Z12.4 Encounter for screening for malignant neoplasm of cervix; Z11.51 Encounter for screening for human papillomavirus (HPV)
CPT/HCPCS: 58301; 87624; 88142

== ENCOUNTER 2023-04-03 07:54 | Outpatient (AMB) | payer OTHER, SELFPAY ==
[2023-04-03 08:41] VITALS: BP 114/68; PULSE 75; O2SAT 98; BMI 28.0
--- NOTE | 2023-04-03 08:41 | MHC.PC.OV ---
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 Accompanied by: Self / Same As Patient Allergies No Known Allergies [No Known Allergies*] Allergy (Verified 04/03/23 08:47) Medication List - Last Reconciled 04/03/23 by Delfina Sen MD cholecalciferol (vitamin D3) 50 mcg PO DAILY 90 days omeprazole 20 mg PO DAILY Tobacco use date assessed: 04/03/23 Dental Screening Dental Screen Date: 04/03/23 Did you have a dental visit in the last 12 months?: No Did you have a dental problem in the last 6 months where you did not have access to dental care?: No Was dental information given to patient?: No HPI HPI Comments History of Present Illness Details This is a 32-year-old female that comes for her physical exam. Last Pap smear was 2021. She complains of some reflux that has been aggravated this past 2 months. Has been out of omeprazole. No chest pain or shortness of breath. FORMERLY [facility] Medical History COVID-19 Hypovitaminosis D Iron deficiency anemia Obese Period has come late Positive test Transaminitis Surgical History History of Family History Mother HTN (hypertension) Father No problems noted. Social History Household Members: Spouse and Family Housing: Apartment Alcohol intake: never Patient Tobacco Use Status: Never used Tobacco e-Cigarette/Vaping Use: Never Used Second Hand Smoke Exposure: No service: No Current occupational status: employed Current occupational exposures/hazards: No Gender identity: Female Cognitive needs: No Hearing needs: No Vision needs: No Female Reproductive History Menstrual Age of Menarche: 12 Questionnaire PHQ-9 Over the last 2 weeks, how often have you been bothered by any of the following problems? 1. Little interest or pleasure in doing things: not at all 2. Feeling down, depressed, or hopeless: not at all 3. Trouble falling or staying asleep, or sleeping too much: not at all 4. Feeling tired or having little energy: not at all 5. Poor appetite or overeating: not at all 6. Feeling bad about yourself - or that you are a failure or have let yourself or your family down: not at all 7. Trouble concentrating on things, such as reading the newspaper or watching television: not at all 8. Moving or speaking so slowly that other people could have noticed. Or the opposite - being so fidgety or restless that you have been moving around a lot more than usual: not at all 9. Thoughts that you would be better off or of hurting yourself in some way: not at all Total score: 0 Depression Screening Interpretation: Negative 00613 - PHQ-9 Billing: Yes Source: Developed by Drs. Evan Bustillo, Mira Villa, Ignacio White and colleagues, with an educational roosevelt from [employer]. Thrive Questionnaire Date Thrive assessed: 04/03/23 I am a: Patient What is your living situation today?: I have a steady place to live Within the past 12 months, did the food you bought not last and you didn't have the money to get more?: Never true Within the past 12 months, did you worry whether your food would run out before you got money to buy more?: Never true Do you have trouble paying for medicines?: No Do you have trouble getting transportation to medical appointments?: No Do you have trouble paying your heating and electricity bill?: No Do you have trouble taking care of your child, family member or friend?: No Do you have trouble with day-to-day activities such as bathing, preparing meals, shopping, managing finances, etc.?: No Are you currently unemployed and looking for a job?: No Are you interested in more education?: No Currently or been in a relationship where the following occur: no concerns reported AUDIT C Alcohol Use Questionnaire (AUDIT-C) 1. How often do you have a drink containing alcohol?: Never Total Score: 0 Score Reviewed/Action Taken: No KAILEY-7 AMB Questionnaire KAILEY-7 Date KAILEY - 7 assessed: 04/03/23 Feeling nervous, anxious, or on edge: 0 = Not at all Not being able to stop or control worryin = Not at all Worrying too much about different things: 0 = Not at all Trouble relaxin = Not at all Being so restless that it is hard to sit still: 0 = Not at all Becoming easily annoyed or irritable: 0 = Not at all Feeling afraid as if something awful might happen: 0 = Not at all Total KAILEY-7 score (0-4 normal; 5-9 mild; 10-14 moderate; 15-21 severe): 0 Source: Developed by Drs. Evan Bustillo, Mira Villa, Ignacio White and colleagues, with an educational roosevelt from [employer]. KAILEY-7 Assessment Billing KAILEY-7 Assessment Tool: KAILEY-7 Assessment 52915 Review of Systems Const All systems reviewed & are unremarkable except as noted in HPI and below Eyes Reports no additional complaints, Denies change in vision and Denies other visual disturbances Card Denies chest pain at rest, Denies chest pain with activity, Denies edema, Denies irregular heart rhythm, Denies claudication, Denies dyspnea, Denies dyspnea on exertion, Denies orthopnea, Denies paroxysmal nocturnal dyspnea and Denies slow heart rate Resp Denies cough, Denies dyspnea and Denies dyspnea on exertion GI Denies abdominal pain, Denies change in bowel habits, Denies excessive flatus, Reports heartburn, Denies nausea and Denies vomiting Denies urinary incontinence, Denies urinary hesitancy and Denies urinary urgency Musc Denies abnormal gait, Denies atrophy, Denies deformity and Denies limited range of motion Skin/Breast Denies bleeding lesions, Denies changing lesions and Denies rash Neuro Denies abnormal gait and Denies lack of coordination Physical exam (Primary Care) Vital Signs: Last Vital Signs Pulse 75 04/03/23 08:41 BP 114/68 04/03/23 08:41 Pulse Ox 98 04/03/23 08:41 Oxygen Delivery Method Room Air 04/03/23 08:41 BMI result Body Mass Index 28.0 Tobacco/Smoking Status: Tobacco use Status Tobacco use date assessed 04/03/23 04/03/23 08:44 Patient Tobacco Use Status Never used Tobacco 04/03/23 08:44 e-Cigarette/Vaping Use Never Used 04/03/23 08:44 PHQ-9: PHQ-9 Score PHQ-9: Total score 0 04/03/23 08:44 Depression Screening Interpretation: Negative Thrive Assessment: Date of Thrive Assessment Date Thrive assessed 04/03/23 04/03/23 08:44 Currently or been in a relationship where the following occur: no concerns reported Const Orientation/consciousness: patient oriented x3 HENMT Head: Yes normal to inspection, Yes normocephalic and Yes atraumatic Ears: external ears normal Eyes General: appearance normal, both eyes and all related structures Eyelids: Yes eyelids normal Conjunctivae: conjunctivae normal Neck Neck: Yes normal visual inspection and Yes supple Resp Effort & Inspection: normal respiratory effort Auscultation: clear to auscultation bilaterally Cardio Jugular venous distension: no JVD Rate: regular rate Rhythm: regular rhythm Heart sounds: S1 normal heart sound present and S2 normal heart sound present GI Inspection: Yes normal to inspection Palpation (GI): Soft to palpation and nontender Auscultation: normal bowel sounds Skin General skin exam: no rashes or lesions noted Neuro General: patient oriented x3 and no focal motor deficits Extrem General: Yes full ROM Psych Appearance: grossly normal Assessment and Plan Assessment & Plan (1) Physical exam: Code(s): Z00.00 - Encounter for general adult medical examination without abnormal findings Plan: Repeat in a year. Orders: Orders Comprehensive [place]. Panel Fast Today Z00.00 - Encounter for general adult medical examination without abnormal findings IRON PROFILE Today D64.9 - Anemia, unspecified Lipid Panel Today Z00.00 - Encounter for general adult medical examination without abnormal findings Vitamin D 25-OH Total Today E55.9 - Vitamin D deficiency, unspecified FL upper GI series Today K21.9 - Gastro-esophageal reflux disease without esophagitis Complete Blood Count Auto Diff Today D64.9 - Anemia, unspecified Coding Level of Care Code Est Pt Prev Care [id number]([id number]) Diagnoses Physical exam Z00.00 Additional Codes KAILEY-7 Assessment Billing - KAILEY-7 Assessment Tool: KAILEY-7 Assessment [id number] ([id number]) Time Spent (min) 32
== END 2023-04-03 08:59 | disposition home or self-care (01) ==
PROVIDERS: PCP Internal Medicine; Visit Provider Internal Medicine
DX: Z00.00 Encounter for general adult medical examination without abnormal findings (principal)
CPT/HCPCS: 99395

== ENCOUNTER 2023-09-12 07:22 | Outpatient (REF) | payer OTHER, SELFPAY ==
--- NOTE | ~2023-09-12 | FL_ITS ---
EXAMINATION: XR FLUOROSCOPY UPPER GI WITH AIR CLINICAL INFORMATION: Epigastric pain COMPARISON: None TECHNIQUE: Fluoroscopic air contrast upper GI examination was performed utilizing standard techniques with thin and thick barium and effervescent granules. Numerous spot images were obtained. FINDINGS: Dual and single contrast images of the esophagus demonstrate normal caliber, contour, and mucosal pattern. No evidence of stricture, mass, or ulcerations identified. Esophageal peristalsis was normal. Findings equivocal for a tiny type I hiatus hernia, versus prominent esophageal vestibule. Gastroesophageal reflux is seen up to the thoracic inlet. Dual contrast and single contrast images of the stomach demonstrated normal contour. There a few scattered tiny post side of contrast pooling in the fundus and body of the stomach that may represent small superficial mucosal ulcerations, although could also be artifactual from technique. There may be a few tiny hyperplastic polyps in the fundus as well. There is no evidence of mass, or other abnormality. Contrast freely passed into the gastric antrum and duodenal bulb without delay. Single and air-contrast images of the duodenal bulb demonstrate no abnormality. The duodenal sweep has a normal appearance, course, and mucosal fold appearance. No malrotation. The imaged proximal jejunum has a normal fold pattern and caliber. FLUOROSCOPY TIME: 3 minutes 25 seconds Number of Spot Images: 14 Number of Cine: 8 DOSE AREA PRODUCT: 1915 uGy-m2 (microgray-meter squared) FL/FL upper GI series IMPRESSION: 1. Significant gastroesophageal reflux. 2. A few tiny foci of contrast pooling in the fundus and body the stomach, possibly representing small superficial mucosal ulcers although could also be artifact from technique. Cannot exclude mild erosive gastritis. Recommend correlation with EGD. This procedure was performed by Salomon Candelario PA-C, and supervised by Dr. Calzada
== END 2023-09-12 07:23 | disposition home or self-care (01) ==
LOC: HO.XRAY 07:22
PROVIDERS: PCP Internal Medicine; Visit Provider Internal Medicine
DX: K21.9 Gastro-esophageal reflux disease without esophagitis (principal)
CPT/HCPCS: 74240

== ENCOUNTER → 2023-09-12 07:24 | Outpatient (BNV) | payer OTHER, SELFPAY | PROVIDERS: PCP Internal Medicine; Visit Provider Radiology Diagnostic Radiology | DX: R10.13 Epigastric pain (principal) | CPT/HCPCS: 74246 ==

== ENCOUNTER 2023-09-29 09:26 | Outpatient (REF) | payer OTHER, SELFPAY ==
[2023-09-30 03:56] LABS: CT PCR NOT DETECTED (Not Detect.); NG PCR NOT DETECTED (Not Detect.)
[2023-09-30 14:27] LABS: BV Int Neg Control Negative (Negative); BV Int Pos Control Positive (Positive)
== END 2023-09-29 09:27 | disposition home or self-care (01) ==
LOC: HO.LNP 09:26
PROVIDERS: PCP Internal Medicine; Visit Provider Advanced Practice Midwife
DX: Z12.4 Encounter for screening for malignant neoplasm of cervix (principal); Z11.3 Encounter for screening for infections with a predominantly sexual mode of transmission
CPT/HCPCS: 0353U; 87480; 87510; 87660; 99395

== ENCOUNTER 2023-09-29 09:26 | Outpatient (AMB) | payer OTHER, SELFPAY ==
[2023-09-29 10:12] VITALS: BP 110/70; BMI 29.8
--- NOTE | 2023-09-29 10:12 | MHC.OFFVIS ---
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 Data Systems Analyst Required: Yes Data Systems Analyst Language: Indonesian Information Interpreted: non-clinical & clinical Geospatial Program Management Officer: Geospatial Program Management Officer Present (Nakia) Allergies No Known Allergies [No Known Allergies*] Allergy (Verified 09/29/23 10:13) Medication List - Last Reconciled 09/29/23 by Elba Flores CNM cholecalciferol (vitamin D3) 50 mcg PO DAILY 90 days omeprazole 20 mg PO DAILY PRN 90 days Is last menstrual period known: No (end august) Post menopausal: No HPI 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 She has in a monogamous relationship and she excepted cultures for infection but declined blood work for STIs as not concerned. She feels she is healthy is not having any health issues is open to but not actively trying just yet. [facility] Medical History Transaminitis Hypovitaminosis D Obese Iron deficiency anemia COVID-19 Period has come late Positive test Surgical History (Updated 09/29/23 @ 10:56 by Elba Flores CNM) History of Family History Mother HTN (hypertension) Father No problems noted. Social History Household Members: Spouse and Family Housing: Apartment Alcohol intake: never Patient Tobacco Use Status: Never used Tobacco e-Cigarette/Vaping Use: Never Used Second Hand Smoke Exposure: No service: No Current occupational status: employed Current occupational exposures/hazards: No Gender identity: Female Cognitive needs: No Hearing needs: No Vision needs: No Female Reproductive History Menstrual Age of Menarche: 12 Duration of menses: 6-7 days control method: none Total pregnancies: 1 Full term: 1 Number of Living Children: 1 Date of last pap smear: 08/08/22 (negative) History of abnormal pap smear: No Physical Exam Vital Signs: Last Vital Signs BP 110/70 09/29/23 10:12 BMI result Body Mass Index 29.8 Const General: healthy appearing, comfortable, no acute distress, well developed and alert Nutritional Appearance: average body habitus Orientation/consciousness: patient oriented x3 Limitations: no limitations HEENT Head: Yes normocephalic Neck Neck: Yes normal visual inspection Chest Chest palpation & inspection: normal inspection of the chest Breast/axilla inspection: normal inspection of the breasts and normal inspection of the axillae Breast/axilla palpation: normal palpation of the breasts and normal palpation of the axillae Resp Effort & Inspection: normal respiratory effort GI Inspection: Yes normal to inspection, No Abdominal wall edema and No distended Palpation (GI): Soft to palpation and nontender Other: Patient has a fairly well healed keloid ed low transverse scar. External vulva within normal limits vagina pink and moist clear scant whitish discharge cervix appears multiparous it is long close thick midposition to anterior and the uterus is small firm anteverted mobile nontender adnexa nontender. Excellent tone with Kegel. General: Yes bladder normal to palpation External Female Exam: normal external appearance and normal appearance of the urethra Speculum Exam - Vagina: normal appearance of the vagina, normal palpation and normal vaginal discharge Speculum Exam - Cervix: normal appearance of the cervix, normal palpation and nontender Bimanual exam- vagina & uterus: normal bimanual exam, normal palpation, uterine size normal, bladder normal to palpation, consistency normal, normal palpation, uterine mobility normal, uterine shape normal, No Cervical tenderness present, non-tender and no cervical motion tenderness Bimanual Exam- Adnexa, other: normal adnexae, no masses, normal and No adnexal tenderness Neuro General: patient oriented x3 Results Reviewed Results Reviewed: Age/Sex: 32/F Attending: Elba Flores CNM : 1990 Submitted by: Elba Flores CNM Copies to: MR #: [id number] Status: DEP REF Collected: 08/08/22 Location: [facility] Received: 12/19/22 Interpretation Satisfactory for evaluation. Negative for intraepithelial lesion or malignancy. HPV mRNA E6/E7: NOT DETECTED This assay detects E6/E7 viral messenger RNA (mRNA) from 14 high-risk HPV types (16, 18, 31, 33, 35, 39, 45, 51, 52, 56, 58, 59, 66, 68) HPV testing performed by [facility], [place], [place]. See reference laboratory portion of the EMR for entire report. Clinical Information LMP: IUD no menses Previous PAP test: 05/06/20, WNL Material Received ThinPrep-Cervical Electronically Signed By: Dana Melendez 08/21/22 1421 The Pap Test is a screening procedure with the inherent possibility of both false negative and false positive results. Results should be interpreted in the context of historic and current clinical findings. Reliability of the Pap Test is enhanced by performing the test on a regular repetitive basis. Patient: Francois Alcocer Age/Sex: 32/F MR#: [id number] Page 1 of 1 Assessment & Plan Assessment & Plan (1) Cervical cancer screening: Comment: 08/08/2022 Pap is negative with negative HPV. Code(s): Z12.4 - Encounter for screening for malignant neoplasm of cervix (2) Encounter for preconception consultation: Code(s): Z31.69 - Encounter for other general counseling and advice on procreation (3) Well woman exam with routine gynecological exam: Code(s): Z01.419 - Encounter for gynecological examination (general) (routine) without abnormal findings Plan Discussed patient's openness to she is neither contraceptive thing nor trying to get and if it happens it happens she is generally aware of her periods her last period came the end of August. She has not taking any vitamins other than vitamin-D I recommend she take a multivitamin with folic acid in it she declined vitamins for now. Discussed that if she does get we do not deliver babies here which she knew because she had her last baby at [facility] when that was the plan for delivery for somebody coming here for care discussed that now we are having women who come here for care deliver at [facility]. She would prefer to have her baby at [facility] I discussed with her that both because of her history of a previous and need to discuss vaginal after issues and also desire to deliver at [facility] she would best receive all of her care from the start with a [facility] based practice. -----Discussed in this visit the following: healthy balanced diet, regular and consistent exercise, getting recommended health screens, doing the best she can for her particular health concerns, kegel exercises, pap smear screening and followup recommendations, mammography screening and SBE, normal changes in cycles in her life stage--- . Coding Level of Care Code Est Pt Prev Care [id number]) Diagnoses Cervical cancer screening Z12.4 Encounter for preconception consultation Z31.69 Well woman exam with routine gynecological exam Z01.419
== END 2023-09-29 11:02 | disposition home or self-care (01) ==
LOC: HO.HWSM 09:26
PROVIDERS: PCP Internal Medicine; Visit Provider Advanced Practice Midwife
DX: Z12.4 Encounter for screening for malignant neoplasm of cervix (principal); Z31.69 Encounter for other general counseling and advice on procreation; Z01.419 Encounter for gynecological examination (general) (routine) without abnormal findings
CPT/HCPCS: 99395

== ENCOUNTER 2023-10-01 07:14 | Emergency (ER) | payer OTHER, SELFPAY ==
[2023-10-01 07:15] VITALS: BP 122/77; PULSE 109; RESP 20; TEMP 35.9; O2SAT 97; BMI 29.8
--- NOTE | 2023-10-01 07:33 | ED_ITS ---
HPI - Nausea/Vomiting/Diarrhea General Chief complaint: Nausea/Vomiting/Diarrhea Stated complaint: Vomiting/Diarrhea since monday Time Seen by Provider: 10/01/23 07:20 Source: patient Mode of arrival: ambulatory Limitations: language barrier (Singaporean speaking only, auditor appraiser used) History of Present Illness HPI Narrative: 33-year-old male history of GERD who presents emergency department for evaluation of 2 days of nausea, vomiting and diarrhea. Patient states that she has been vomiting all day greater than 5 episodes per day. She has also had 5 episodes of loose diarrheal stool. She has had no blood in the diarrhea or stools. She denied fever but he has been having chills. She states that she has total body pain. She is complaining of epigastric pain which she describes as a tightness which is constant x2 days. She denied rhinorrhea, sore throat, shortness of breath, dyspnea on exertion. She states she is occasional cough which is nonproductive. She states she gets occasional chest pain which is worse with coughing and breathing. Related Data Previous Rx's Medication Instructions Recorded cholecalciferol (vitamin D3) 50 50 mcg PO DAILY 90 days #90 caps 04/03/23 mcg (2,000 unit) capsule omeprazole 20 mg capsule,delayed 20 mg PO DAILY PRN gerd 90 days 04/03/23 release #90 caps loperamide 2 mg tablet (Imodium 2 mg PO Q4H PRN loose stool #20 10/01/23 A-D) tabs ondansetron 4 mg disintegrating 4 mg PO Q6-8H PRN nausea and 10/01/23 tablet vomiting #14 tabs Allergies Allergy/AdvReac Type Severity Reaction Status Date / Time No Known Allergies Allergy Verified 10/01/23 07:20 [No Known Allergies*] Review of Systems 2 Review of Systems: Yes all other systems are reviewed and are negative PMFSH [facility] Narrative: Social history: She denies tobacco, alcohol and drug use. Medical History Transaminitis Hypovitaminosis D Obese Iron deficiency anemia COVID-19 Period has come late Positive test Surgical History History of Family History Family History Mother HTN (hypertension) Father No problems noted. Social History Social History Household Members: Spouse and Family Housing: Apartment Alcohol intake: never Patient Tobacco Use Status: Never used Tobacco e-Cigarette/Vaping Use: Never Used Second Hand Smoke Exposure: No Advance Directives: No Advance Directives Information Provided: No service: No Current occupational status: employed Current occupational exposures/hazards: No Gender identity: Female Cognitive needs: No Hearing needs: No Vision needs: No Physical Exam 2 Vital Signs: Vital Signs: Last Vital Signs Temp 98.9 F 10/01/23 08:24 Pulse 91 10/01/23 08:24 Resp 16 10/01/23 08:24 BP 110/66 10/01/23 08:24 Pulse Ox 97 10/01/23 08:24 O2 Del Method Room Air 10/01/23 08:24 BMI result Body Mass Index 29.8 Vital signs revealed an elevated heart rate of 109 otherwise unremarkable Exam: General: Awake, alert in no distress Head: Normocephalic, atraumatic EENT: PERRL, Lids normal, sclera normal, conjunctiva normal, nose normal , ears normal, throat without erythema or exudates Neck: Supple, no adenopathy Lung: breath sounds symmetric, no wheezing, rales or rhonchi Chest: symmetric movement, mild bilateral costochondral joint tenderness and sternal tenderness Heart: r tachycardia with regular rhythm, normal S1, S2 no murmurs or rubs Abdomen: soft, moderate epigastric tenderness, mild suprapubic tenderness, nondistended, normal bowel sounds Back: no vertebral tenderness, no CVAT Extremities: no deformities, moves all extremities symmetrically Neuro: Awake, alert, oriented, normal speech, cranial nerves intact, moves all extremities symmetrically Psych: Pleasant, cooperative Medications Administered Discontinued Medications Generic Name Dose Route Start Last Admin Trade Name Freq PRN Reason Stop Dose Admin Sodium Chloride 1,000 mls @ 999 mls/hr 10/01/23 07:30 10/01/23 08:21 Ns IV 10/01/23 08:30 999 mls/hr .Q1H1M STA Administration Ketorolac Tromethamine 15 mg 10/01/23 07:30 10/01/23 08:23 Ketorolac Tromethamine 15 Mg/Ml Vial IVPUSH 10/01/23 07:31 15 mg ONCE STA Administration Ondansetron HCl 4 mg 10/01/23 07:30 10/01/23 08:24 Ondansetron Hcl 4 Mg/2 Ml Vial IVPUSH 10/01/23 07:31 4 mg ONCE ONE Administration Medical Decision Making Medical Decision Making [facility] Narrative: 33-year-old female with a history of GERD who presents emergency department for evaluation nausea, vomiting and diarrhea x2 days with inability to hold down food or fluid, chills, myalgias, occasional cough, epigastric and suprapubic pain. Vital signs elevated heart rate of 109. Exam did reveal mild anterior chest wall tenderness, mild suprapubic tenderness and moderate epigastric tenderness. Differential diagnosis: Viral syndrome, COVID, influenza, urinary tract infection, dyspepsia, pancreatitis, URI, pneumonia Following evaluation was ordered: CBC, CMP, magnesium, lipase, COVID-19, influenza, urine test, urinalysis, Patient was treated with the following: Normal saline x1 L, Toradol 15 mg IV and Zofran 4 mg IV 10:13 My interpretation patient's laboratory evaluation as follows: CBC and CMP were unremarkable. [id number] Patient is feeling better after the above treatment. Patient most likely has a viral syndrome. She was prescribed Zofran ODT and Imodium. She was advised to take [id number]-stb-iqozatn ibuprofen and Tylenol. She was given printed and verbal instructions and discharged home Admission/Observation Consideration of admission/observation: Escalation of care including admission/observation considered Lab Data [facility] Lab Attestation statement: I reviewed the patient's lab results. 10/01/23 07:39 10/01/23 07:39 Labs: Lab Results 10/01/23 10/01/23 Range/Units 07:37 07:39 WBC 4.8 (4.8-10.8) X10*3/uL RBC 4.58 (4.20-5.50) X10*6/uL Hgb 13.3 (12.0-16.0) g/dl Hct 39.3 (37.0-47.0) % MCV 85.8 (80.0-98.0) fL MCH 29.0 (27.0-33.0) pg MCHC 33.8 (31.0-35.0) g/dl RDW 12.3 (11.0-16.0) % Plt Count 220 (160-400) X10*3/uL MPV 9.9 (9.4-12.3) fL Immature Gran % (Auto) 0.4 (0.0-0.4) % Neut % (Auto) 69.1 (45-73) % Lymph % (Auto) 19.6 L (20-40) % Stevens % (Auto) 10.3 (2-11) % Eos % (Auto) 0.4 (0-4) % Baso % (Auto) 0.2 (0-2) % Lymph # (Auto) 0.9 L (1.2-4.9) X10*3/uL Stevens # (Auto) 0.5 (0.1-1.2) X10*3/uL Eos # (Auto) 0.0 (0.0-0.4) X10*3/uL Baso # (Auto) 0.0 (0.0-0.2) X10*3/uL Abs Immat Gran (auto) 0.02 (0.00-0.03) X10*3/uL Absolute Neuts (auto) 3.3 (2.0-8.3) x10*3/uL Absolute Nucleated RBC 0.000 (0.0-0.012) X10*3/uL Nucleated RBC % (auto) 0.0 (0.0-0.2) /100WBC Sodium 140 (135-145) mmol/L Potassium 3.7 (3.3-5.1) mmol/L Chloride 105 (96-108) mmol/L Carbon Dioxide 22 (22-29) mmol/L Anion Gap 17 (12-20) BUN 10 (9-16) mg/dL Creatinine 0.86 (0.5-1.4) mg/dL Estim Creat Clear Calc 92.7 Estimated GFR > 60 Random Glucose 96 (60-115) mg/dL Calcium 9.3 (8.4-10.2) mg/dL Magnesium 2.1 (1.6-2.6) mg/dL Total Bilirubin 0.3 (0.0-1.0) mg/dL AST 23 (5-31) U/L ALT 79 H (0-31) U/L Alkaline Phosphatase 107 (39-117) U/L Total Protein 8.0 (6.5-8.0) g/dL Albumin 4.5 (3.5-5.0) g/dL Lipase 17 (8-78) U/L Urine Color Yellow Urine Appearance Cloudy Urine pH 5.5 (5.0-9.0) Ur Specific [place] >= 1.030 H (1.005-1.025) Urine Protein 30 (1+) H (Neg-Trace) mg/dL Urine Glucose (UA) Negative (Negative) mg/dL Urine Ketones 15 (Negative) mg/dL Urine Blood Moderate (2+) H (Negative) Urine Nitrite Negative (Negative) Ur Leukocyte Esterase Negative (Negative) Urine RBC >20 H (0-2) /HPF Urine WBC 6-10 H (0-5) /HPF Ur Squamous Epith Cells 6-10 (0-2) /HPF Urine Bacteria Trace (None Seen) Hyaline Casts 3-5 (0-2) /LPF Urine Test NEGATIVE (NEGATIVE) COVID-19 (JOSE EDUARDO) Negative (Negative) COVID-19 Clin Com See Note Influenza Type A (ISATU) Negative (Negative) Influenza Type B (ISATU) Negative (Negative) Influenza A & B Note See Note Prescription Management I considered prescription management with: Other (Antiemetics, antidiarrheal medications prescribed) Chronic Conditions Patient?s care impacted by: Other (GERD) Discharge Plan Discharge Clinical Impression: Viral syndrome Vomiting Qualifiers: Vomiting type: unspecified Nausea presence: with nausea Qualified Code(s): R 11.2 - Nausea with vomiting, unspecified Diarrhea Qualifiers: Diarrhea type: unspecified type Qualified Code(s): R19.7 - Diarrhea, unspecified Patient Disposition: Home, Self-Care Instructions: Viral Syndrome (ED) Additional Instructions: Your blood work was unremarkable which is reassuring. Your COVID-19 influenza tests were negative. Your symptoms are consistent with a viral infection. Take Zofran ODT 4 mg pills, 1 pill dissolved in your mouth every 8 hours as needed for nausea and vomiting. For diarrhea I want you to take Imodium 2 mg pills. ?Take 2 pills after the 1st loose, diarrheal stool then 1 pill after each loose, diarrheal stool up to 8 pills per day. ?This usually stops diarrhea within 24 hours. Follow-up with your doctor in 2 days. Please return to the emergency department if your symptoms get worse or if you develop any symptoms that are concerning to you. Prescriptions: New loperamide [Imodium A-D] 2 mg tablet 2 mg PO Q4H PRN (Reason: loose stool) Qty: 20 0RF ondansetron 4 mg tablet,disintegrating 4 mg PO Q6-8H PRN (Reason: nausea and vomiting) Qty: 14 0RF No Action cholecalciferol (vitamin D3) 50 mcg (2,000 unit) capsule 50 mcg PO DAILY 90 Days Qty: 90 1RF omeprazole 20 mg capsule,delayed release(DR/EC) 20 mg PO DAILY PRN (Reason: gerd) 90 Days Qty: 90 1RF Print Language: Singaporean
[2023-10-01 07:44] LABS: MANUAL DIFF FLAG NO
[2023-10-01 07:46] LABS: Appearance Urine Cloudy; Color Urine Yellow; Glucose Urine UA Negative (Negative); Leukocyte Esterase Urine Negative (Negative); Nitrite Urine Negative (Negative); PH 5.5 (5.0-9.0); Specific Gravity - Urine >= 1.030 (1.005-1.025); UMIC TRIGGER UACC YES; UPreg QC Valid YES; Urine Blood Moderate (2+) (Negative); Urine Ketones 15 mg/dL (Negative); Urine Protein 30 (1+) mg/dL (Neg-Trace)
[2023-10-01 07:47] LABS: Basophils Percent Auto 0.2 % (0-2); Eosinophils Percent Auto 0.4 % (0-4); Hematocrit 39.3 % (37.0-47.0); Hemoglobin 13.3 g/dl (12.0-16.0); Imm Gran Abs Auto 0.02 X10*3/uL (0.00-0.03); Imm Gran Pct Auto 0.4 % (0.0-0.4); Lymphocytes Absolute Auto 0.9 X10*3/uL (1.2-4.9); Lymphocytes Percent Auto 19.6 % (20-40); Mean Corpuscular HGB Conc 33.8 g/dl (31.0-35.0); Mean Corpuscular Volume 85.8 fL (80.0-98.0); Mean Platelet Volume 9.9 fL (9.4-12.3); Monocytes Absolute Auto 0.5 X10*3/uL (0.1-1.2); Monocytes Percent Auto 10.3 % (2-11); Neutrophils Absolute Auto 3.3 x10*3/uL (2.0-8.3); Neutrophils Percent Auto 69.1 % (45-73); Platelet Count 220 X10*3/uL (160-400); Red Blood Count 4.58 X10*6/uL (4.20-5.50); Red Cell Distribution Width 12.3 % (11.0-16.0); White Blood Count 4.8 X10*3/uL (4.8-10.8)
[2023-10-01 07:48] LABS: Urine Pregnancy NEGATIVE (NEGATIVE)
[2023-10-01 07:51] LABS: Bacteria Urine Trace (None Seen); RBC Urine >20 /HPF (0-2); UACC Culture Trigger YES
[2023-10-01 07:58] LABS: Lipase 17 U/L (8-78)
[2023-10-01 07:59] LABS: COVID-19 Test Negative (Negative); IDNOW Serial# 152EDE1D
[2023-10-01 08:00] LABS: Alanine Aminotransferase 79 U/L (0-31); Albumin Level 4.5 g/dL (3.5-5.0); Alkaline Phosphatase 107 U/L (39-117); Anion Gap 17 (12-20); Aspartate Amino Transferase 23 U/L (5-31); Bilirubin Total 0.3 mg/dL (0.0-1.0); Blood Urea Nitrogen 10 mg/dL (9-16); Calcium 9.3 mg/dL (8.4-10.2); Carbon Dioxide 22 mmol/L (22-29); Chloride 105 mmol/L (96-108); Creatinine Clr Calc Pharmacy 92.7; Estimated Glomerular Filt Rate > 60; Glucose Random 96 mg/dL (60-115); Magnesium 2.1 mg/dL (1.6-2.6); Potassium 3.7 mmol/L (3.3-5.1); Sodium 140 mmol/L (135-145)
[2023-10-01 08:00] LABS: IDNOW Serial# 08D9AD1C; Influenza A Negative (Negative); Influenza B2 Negative (Negative)
[2023-10-01] MEDS: 0.9 % Sodium Chloride 1,000 ML 999 ML IV (08:21)
[2023-10-01] MEDS: Ketorolac Tromethamine 15 MG/ML VIAL IVPUSH (08:23)
[2023-10-01 08:24] VITALS: BP 110/66; PULSE 91; RESP 16; TEMP 37.2; O2SAT 97
[2023-10-01] MEDS: ondansetron HCL 4 MG/2 ML VIAL IVPUSH (08:24)
--- NOTE | 2023-10-01 08:31 | PC.NURSE ---
20g iv inserted RAC pt tolerated well. Meds and fluid given as documented. vss. pt resting quietly at this time
[2023-10-01 10:59] VITALS: BP 106/63; PULSE 84; RESP 16; TEMP 36.7; O2SAT 97
== END 2023-10-01 11:12 | disposition home or self-care (01) ==
PROVIDERS: Emergency Provider Emergency Medicine Emergency Medical Services; PCP Internal Medicine
DX: R11.2 Nausea with vomiting, unspecified (principal); B34.9 Viral infection, unspecified; R19.7 Diarrhea, unspecified; Z11.52 Encounter for screening for COVID-19; Z79.899 Other long term (current) drug therapy
CPT/HCPCS: 36415; 80053; 81001; 81025; 83690; 83735; 85025; 87086; 87502; 87635; 96361; 96374; 96375; 99284; J1885; J2405

== ENCOUNTER 2023-11-01 08:33 | Outpatient (AMB) | payer OTHER, SELFPAY ==
--- NOTE | 2023-11-01 08:34 | MHC.OFFVIS ---
Intake Vital Signs 11/01/23 08:35 Height 5 ft 3 in Weight 166 lb 3.657 oz BMI 29.4 BP 119/57 L Blood Pressure Location Lt brachial Position Sitting Pulse 81 Pulse Source Pulse Oximeter Intake Visit Reasons: Gastroesophageal reflux disease (GERD) Intake Note: Pt presents to the office today for GERD. She states she has been having issues with GERD for the past 3 months. She states it doesn't mater what she eats or drinks she will get it multiple times a day. Pt denies any N/V/D. Tunnel Heading Inspector Required: Yes Tunnel Heading Inspector Language: Citizen Of [place] Allergies No Known Allergies [No Known Allergies*] Allergy (Verified 11/01/23 08:36) HPI Gastroesophageal reflux disease (GERD) HPI Details 33-year-old female here for initial evaluation of GERD. She is [place] Delfina Marie [place] [facility] [place]. PMX Obesity GERD Anemia Transaminitis * SURGICAL HISTORY * ALLERGIES: NKDA * [email or web address] LABS: Laboratory Tests 10/01/23 07:39 WBC 4.8 Hgb 13.3 Hct 39.3 Plt Count 220 Estimated GFR > 60 Total Bilirubin 0.3 AST 23 ALT 79 H Alkaline Phosphata se 107 Lipase 17 UPPER GI WITH F/T 09/13/23 FINDINGS: Dual and single contrast images of the esophagus demonstrate normal caliber, contour, and mucosal pattern. No evidence of stricture, mass, or ulcerations identified. Esophageal peristalsis was normal. Findings equivocal for a tiny type I hiatus hernia, versus prominent esophageal vestibule. Gastroesophageal reflux is seen up to the thoracic inlet. Dual contrast and single contrast images of the stomach demonstrated normal contour. There a few scattered tiny post side of contrast pooling in the fundus and body of the stomach that may represent small superficial mucosal ulcerations, although could also be artifactual from technique. There may be a few tiny hyperplastic polyps in the fundus as well. There is no evidence of mass, or other abnormality. Contrast freely passed into the gastric antrum and duodenal bulb without delay. Single and air-contrast images of the duodenal bulb demonstrate no abnormality. The duodenal sweep has a normal appearance, course, and mucosal fold appearance. No malrotation. The imaged proximal jejunum has a normal fold pattern and caliber. FLUOROSCOPY TIME: 3 minutes 25 seconds Number of Spot Images: 14 Number of Cine: 8 DOSE AREA PRODUCT: 1915 uGy-m2 (microgray-meter squared) FL/FL upper GI series IMPRESSION: 1. Significant gastroesophageal reflux. 2. A few tiny foci of contrast pooling in the fundus and body the stomach, possibly representing small superficial mucosal ulcers although could also be artifact from technique. Cannot exclude mild erosive gastritis. Recommend correlation with EGD. This procedure was performed by Salomon Candelario PA-C, and supervised by Dr. Calzada US [facility]BD 08/2021 FINDINGS: PANCREAS: Normal. The visualized pancreatic head and body are normal in appearance. The remainder of the pancreas is obscured from visualization by the overlying bowel gas. LIVER: Normal. The liver demonstrates normal size, contour and echogenicity. No focal lesion or intrahepatic biliary duct dilatation. The right lobe measures 17.4 cm in length. The left lobe measures 9.2 cm in length. Portal flow is hepatopetal. Shear wave liver elastography median stiffness is 1.30 m/s (reference: Normal median stiffness is 1.3 m/s or less). IQR/median stiffness to assess sampling precision is 0.07 (reference: Good quality data set is IQR/median stiffness of 0.15 or less). GALLBLADDER: Normal. The gallbladder is physiologically distended without evidence of stones, sludge, polyps, wall thickening or pericholecystic fluid. COMMON BILE DUCT: Normal in caliber measuring 0.3 cm in diameter. RIGHT KIDNEY: Normal. No hydronephrosis. No renal calculi or focal parenchymal lesions. The kidney measures 10.3 cm in maximum dimension. FREE FLUID: None. US/US abdomen mayo w elastography IMPRESSION: 1. Unremarkable abdomen ultrasound. 2. Liver Elastography: Median liver stiffness 1.30, corresponds to a high probability for normal. TODAY'S VISIT She had sudden onset of GERD 6 mos ago. She can not ID any diet changes, medication changes or wt changes preceding. It does not change tih types of foods eaten. She will have intermittent epigastric pain. She is currently on o2o 20mg qd which helps so, so. Her father also suffers GERD. There is no known GB disease. Her BM's are normal with no change. The only time she had N/V was 2 years ago when she was . Given the suggestion of ulcers on UGI will get EGD and increase omperazole to 40mg qd. NO anes or sed probs No resp or card. No ID problems. No FHX of stomach or esophageal cancer. [facility] Medical History Transaminitis Hypovitaminosis D Obese Iron deficiency anemia COVID-19 Period has come late Positive test Surgical History History of Family History Mother HTN (hypertension) Father No problems noted. Social History Household Members: Spouse and Family Housing: Apartment Alcohol intake: never Patient Tobacco Use Status: Never used Tobacco e-Cigarette/Vaping Use: Never Used Second Hand Smoke Exposure: No service: No Current occupational status: employed Current occupational exposures/hazards: No Gender identity: Female Cognitive needs: No Hearing needs: No Vision needs: No Female Reproductive History Menstrual Age of Menarche: 12 Review of Systems Const Denies fatigue, Denies fever(s), Denies night sweats, Denies poor appetite and Denies weight loss ENT Reports Normal hearing present, Denies dysphagia, Denies odynophagia, Denies throat swelling and Denies tongue swelling Card Reports no additional complaints Resp Reports no additional complaints GI Details: Reports abdominal pain, Denies melena, Denies bloating, Denies hematochezia, Denies constipation, Denies GI cramping, Denies dysphagia, Denies excessive flatus, Denies early satiety, Reports heartburn, Denies diarrhea, Denies nausea, Denies odynophagia, Denies vomiting and Denies hematemesis Skin/Breast Denies pruritus, Denies lesions, Denies rash and Denies jaundice Neuro Reports Normal hearing present and Denies Abnormal speech present Endo Denies fatigue Aller/Immun Denies throat swelling and Denies tongue swelling Physical Exam Vital Signs: Last Vital Signs Pulse 81 11/01/23 08:35 BP 119/57 L 11/01/23 08:35 BMI result Body Mass Index 29.4 Const General: cooperative, no acute distress, well developed and well groomed Nutritional Appearance: well nourished and overweight Orientation/consciousness: oriented to person, oriented to place and oriented to time Limitations: language barrier HEENT Head: Yes normocephalic and Yes atraumatic Eyes General: appearance normal, both eyes and all related structures Pupils: Equal, round and reactive pupils present Neck Neck: Yes normal visual inspection and Yes no lymphadenopathy Thyroid: Thyroid normal Resp Effort & Inspection: normal respiratory effort and able to speak in complete sentences Auscultation: clear to auscultation bilaterally Cardio Rate: regular rate Rhythm: regular rhythm Heart sounds: Normal, physiologic split S2 sound present Peripheral pulses: radial pulses present and posterior tibial pulses present GI Inspection: No distended, No Abdominal panniculus present and Yes obesity Palpation (GI): Soft to palpation, nontender, no guarding, not rigid and No hepatosplenomegaly present Percussion: Yes normal to percussion Auscultation: normal bowel sounds Rectal Exam - Female: deferred Abdomen image: 1. BB piercing 2. surgical scar Skin General skin exam: no rashes or lesions noted, turgor normal, skin not dry, no jaundice, No spider nevi and no striae Rashes: no rashes Nails: normal Neuro General: oriented to person, oriented to place and oriented to time Cranial nerves: Yes Equal, round and reactive pupils present and Yes Normal hearing present Speech: No Abnormal speech present Extrem General: Yes normal to inspection, No clubbing, No cyanosis and No edema Psych Appearance: grossly normal and well kempt Mental Status: mental status grossly normal Speech and movement: Normal speech and movement present Affect: normal affect Attitude: cooperative Thought process: Normal thought process present and not confabulating Thought content: Normal thought content present Insight: Fair insight present (Psych) Judgement: Fair judgement present (Psych) Results Reviewed Results Reviewed: Laboratory Tests 10/01/23 07:39 WBC 4.8 Hgb 13.3 Hct 39.3 Plt Count 220 Estimated GFR > 60 Total Bilirubin 0.3 AST 23 ALT 79 H Alkaline Phosphatase 107 Lipase 17 UPPER GI WITH F/T 09/13/23 FINDINGS: Dual and single contrast images of the esophagus demonstrate normal caliber, contour, and mucosal pattern. No evidence of stricture, mass, or ulcerations identified. Esophageal peristalsis was normal. Findings equivocal for a tiny type I hiatus hernia, versus prominent esophageal vestibule. Gastroesophageal reflux is seen up to the thoracic inlet. Dual contrast and single contrast images of the stomach demonstrated normal contour. There a few scattered tiny post side of contrast pooling in the fundus and body of the stomach that may represent small superficial mucosal ulcerations, although could also be artifactual from technique. There may be a few tiny hyperplastic polyps in the fundus as well. There is no evidence of mass, or other abnormality. Contrast freely passed into the gastric antrum and duodenal bulb without delay. Single and air-contrast images of the duodenal bulb demonstrate no abnormality. The duodenal sweep has a normal appearance, course, and mucosal fold appearance. No malrotation. The imaged proximal jejunum has a normal fold pattern and caliber. FLUOROSCOPY TIME: 3 minutes 25 seconds Number of Spot Images: 14 Number of Cine: 8 DOSE AREA PRODUCT: 1915 uGy-m2 (microgray-meter squared) FL/FL upper GI series IMPRESSION: 1. Significant gastroesophageal reflux. 2. A few tiny foci of contrast pooling in the fundus and body the stomach, possibly representing small superficial mucosal ulcers although could also be artifact from technique. Cannot exclude mild erosive gastritis. Recommend correlation with EGD. This procedure was performed by Salomon Candelario PA-C, and supervised by Dr. Calzada [facility] 08/2021 FINDINGS: PANCREAS: Normal. The visualized pancreatic head and body are normal in appearance. The remainder of the pancreas is obscured from visualization by the overlying bowel gas. LIVER: Normal. The liver demonstrates normal size, contour and echogenicity. No focal lesion or intrahepatic biliary duct dilatation. The right lobe measures 17.4 cm in length. The left lobe measures 9.2 cm in length. Portal flow is hepatopetal. Shear wave liver elastography median stiffness is 1.30 m/s (reference: Normal median stiffness is 1.3 m/s or less). IQR/median stiffness to assess sampling precision is 0.07 (reference: Good quality data set is IQR/median stiffness of 0.15 or less). GALLBLADDER: Normal. The gallbladder is physiologically distended without evidence of stones, sludge, polyps, wall thickening or pericholecystic fluid. COMMON BILE DUCT: Normal in caliber measuring 0.3 cm in diameter. RIGHT KIDNEY: Normal. No hydronephrosis. No renal calculi or focal parenchymal lesions. The kidney measures 10.3 cm in maximum dimension. FREE FLUID: None. US/US abdomen mayo w elastography IMPRESSION: 1. Unremarkable abdomen ultrasound. 2. Liver Elastography: Median liver stiffness 1.30, corresponds to a high probability for normal. Assessment & Plan Assessment & Plan (1) Upper abdominal pain: Code(s): R10.10 - Upper abdominal pain, unspecified Plan She had sudden onset of GERD 6 mos ago. She can not ID any diet changes, medication changes or wt changes preceding. It does not change tih types of foods eaten. She will have intermittent epigastric pain. She is currently on o2o 20mg qd which helps so, so. Her father also suffers GERD. There is no known GB disease. Her BM's are normal with no change. The only time she had N/V was 2 years ago when she was . Given the suggestion of ulcers on UGI will get EGD and increase omperazole to 40mg qd. NO anes or sed probs No resp or card. No ID problems. No FHX of stomach or esophageal cancer. Orders: Orders EGD with [facility] - GI Use Only Today R10.10 - Upper abdominal pain, unspecified Medications: New omeprazole 40 mg PO DAILY 30 days 30 caps 3RF Discontinued ondansetron Discontinued Reason: Patient Completed Course 4 mg PO Q6-8H PRN 14 tabs 0RF nausea and vomiting omeprazole Discontinued Reason: Doctor's Order 20 mg PO DAILY 90 days PRN 90 caps 1RF gerd Coding Level of Care Code New Pt Level 3 (17310) Diagnoses Upper abdominal pain R10.10
[2023-11-01 08:35] VITALS: BP 119/57; PULSE 81; BMI 29.4
== END 2023-11-01 08:58 | disposition home or self-care (01) ==
PROVIDERS: PCP Internal Medicine; Visit Provider Nurse Practitioner
DX: R10.10 Upper abdominal pain, unspecified (principal)
CPT/HCPCS: 99203

== ENCOUNTER → 2023-11-01 08:33 | Outpatient (BNVA) | payer OTHER, SELFPAY | PROVIDERS: PCP Internal Medicine; Visit Provider Nurse Practitioner | DX: R10.10 Upper abdominal pain, unspecified (principal); K21.9 Gastro-esophageal reflux disease without esophagitis; Z79.899 Other long term (current) drug therapy | CPT/HCPCS: 99202 ==

== ENCOUNTER 2023-12-15 09:12 | Outpatient (AMB) | payer OTHER, SELFPAY ==
--- NOTE | 2023-12-15 09:57 | MHC.OFFVIS ---
Vital Signs 12/15/23 10:16 Height 5 ft 3 in Weight 167 lb 15.876 oz BMI 29.8 BP 107/64 Blood Pressure Location Rt brachial Position Sitting Pulse 72 Intake Visit Reasons: 4 weeks follow up Intake Note: Patient returns in 4 weeks follow up of abdominal pain. CC: Patient reports that 2 days ago she had epigastric pain and vomited x5. She also c/o heartburn. Quality Control Technician Required: Yes Accompanied by: Self / Same As Patient Allergies No Known Allergies [No Known Allergies*] Allergy (Verified 12/15/23 10:19) HPI HPI 4 weeks follow up: Details: Assessment & Plan (1) Upper abdominal pain: Code(s): R10.10 - Upper abdominal pain, unspecified Plan She had sudden onset of GERD 6 mos ago. She can not ID any diet changes, medication changes or wt changes preceding. It does not change tih types of foods eaten. She will have intermittent epigastric pain. She is currently on o2o 20mg qd which helps so, so. Her father also suffers GERD. There is no known GB disease. Her BM's are normal with no change. The only time she had N/V was 2 years ago when she was . Given the suggestion of ulcers on UGI will get EGD and increase omeprazole to 40mg qd. NO anes or sed probs No resp or card. No ID problems. No FHX of stomach or esophageal cancer. Orders: Orders EGD with [facility] - GI Use Only Today R10.10 - Upper abdominal pain, unspecified Medications: New omeprazole 40 mg PO DAILY 30 days 30 caps 3RF Discontinued ondansetron Discontinued Reason: Patient Completed Course 4 mg PO Q6-8H PRN 14 tabs 0RF nausea and vomiting omeprazole Discontinued Reason: Doctor's Order 20 mg PO DAILY 90 days PRN 90 caps 1RF gerd EGD Scheduled for 02/27/2024 BIOPSY TODAY'S VISIT Malian #see prior appt She is improved with the omeprazole, except one instance 3 days ago - has since resolved. For now she is satisfied to continue on the omeprazole 40 mg a day and I will see her again after her EGD. Keep 03/12 appt [facility] Medical History Family planning advice Encounter for visit Encounter for IUD insertion Encounter for IUD removal Physical exam Encounter for preconception consultation Well woman exam with routine gynecological exam Transaminitis Hypovitaminosis D Obese Iron deficiency anemia COVID-19 Period has come late Positive test Surgical History Postoperative state History of Family History Mother HTN (hypertension) Father No problems noted. Social History Household Members: Spouse and Family Housing: Apartment Alcohol intake: never Patient Tobacco Use Status: Never used Tobacco e-Cigarette/Vaping Use: Never Used Second Hand Smoke Exposure: No service: No Current occupational status: employed Current occupational exposures/hazards: No Gender identity: Female Cognitive needs: No Hearing needs: No Vision needs: No Female Reproductive History Menstrual Age of Menarche: 12 Review of Systems Const Denies fatigue, Denies fever(s), Denies night sweats, Denies poor appetite and Denies weight loss ENT Reports Normal hearing present, Denies dental pain, Denies dysphagia, Denies hearing loss, Denies mouth pain, Denies odynophagia, Denies throat swelling, Denies tongue swelling and Reports other (Dentition adequate) Card Reports no additional complaints Resp Reports no additional complaints GI Details: Denies abdominal pain, Denies melena, Denies bloating, Denies hematochezia, Denies constipation, Denies GI cramping, Denies dysphagia, Denies excessive flatus, Denies early satiety, Reports heartburn, Denies diarrhea, Denies nausea, Denies odynophagia, Denies vomiting and Denies hematemesis Skin/Breast Denies pruritus, Denies lesions, Denies rash and Denies jaundice Neuro Reports Normal hearing present and Denies Abnormal speech present Endo Denies fatigue Aller/Immun Denies throat swelling and Denies tongue swelling Physical Exam Vital Signs: Last Vital Signs Pulse 72 12/15/23 10:16 BP 107/64 12/15/23 10:16 BMI result Body Mass Index 29.8 Const General: cooperative, no acute distress, well developed and well groomed Nutritional Appearance: well nourished and obese Orientation/consciousness: oriented to person, oriented to place and oriented to time Limitations: No language barrier HEENT Head: Yes normocephalic and Yes atraumatic Eyes General: appearance normal, both eyes and all related structures Pupils: Equal, round and reactive pupils present Neck Neck: Yes normal visual inspection and Yes no lymphadenopathy Thyroid: Thyroid normal Resp Effort & Inspection: normal respiratory effort and able to speak in complete sentences Auscultation: clear to auscultation bilaterally Cardio Rate: regular rate Rhythm: regular rhythm Heart sounds: Normal, physiologic split S2 sound present Peripheral pulses: radial pulses present and posterior tibial pulses present GI Inspection: No distended, No Abdominal panniculus present and Yes obesity Palpation (GI): Soft to palpation, nontender, no guarding, not rigid and No hepatosplenomegaly present Percussion: Yes normal to percussion Auscultation: normal bowel sounds Rectal Exam - Female: deferred Skin General skin exam: no rashes or lesions noted, turgor normal, skin not dry, no jaundice, No spider nevi and no striae Rashes: no rashes Nails: normal Neuro General: oriented to person, oriented to place and oriented to time Cranial nerves: Yes Equal, round and reactive pupils present and Yes Normal hearing present Speech: No Abnormal speech present Extrem General: Yes normal to inspection, No clubbing, No cyanosis and No edema Psych Appearance: grossly normal and well kempt Mental Status: mental status grossly normal Speech and movement: Normal speech and movement present Affect: normal affect Attitude: cooperative Thought process: Normal thought process present and not confabulating Thought content: Normal thought content present Insight: Limited insight present (Psych) Judgement: Limited judgement present (Psych) Assessment & Plan Assessment & Plan (1) Upper abdominal pain: Code(s): R10.10 - Upper abdominal pain, unspecified Category: Medical (2) Chronic GERD: Code(s): K21.9 - Gastro-esophageal reflux disease without esophagitis Category: Medical Plan Malian #see prior appt She is improved with the omeprazole, except one instance 3 days ago - has since resolved. For now she is satisfied to continue on the omeprazole 40 mg a day and I will see her again after her EGD. Keep 03/12 appt Coding Level of Care Code Est Pt Level 3 (91677) Diagnoses Upper abdominal pain R10.10 Chronic GERD K21.9
[2023-12-15 10:16] VITALS: BP 107/64; PULSE 72; BMI 29.8
== END 2023-12-15 10:28 | disposition home or self-care (01) ==
PROVIDERS: PCP Internal Medicine; Visit Provider Nurse Practitioner
DX: R10.10 Upper abdominal pain, unspecified (principal); K21.9 Gastro-esophageal reflux disease without esophagitis
CPT/HCPCS: 99213

== ENCOUNTER → 2023-12-15 09:12 | Outpatient (BNVA) | payer OTHER, SELFPAY | PROVIDERS: PCP Internal Medicine; Visit Provider Nurse Practitioner | DX: R10.10 Upper abdominal pain, unspecified (principal); K21.9 Gastro-esophageal reflux disease without esophagitis; Z79.899 Other long term (current) drug therapy | CPT/HCPCS: 99212 ==

== ENCOUNTER 2024-02-27 07:37 | Day surgery (SDC) | payer OTHER, SELFPAY ==
--- NOTE | 2024-02-26 09:28 | HO.ANESPROP2 ---
Documented by User: Lauryn Bull NP 02/26/24 09:30 HPI - Anesthesia Eval Consult details Narrative: 33yo F for Upper Endoscopy PMFSH Active Problems Active Problems: All Active Problems Upper abdominal pain (Acute) History of (Acute) Chronic GERD (Acute) Cervical cancer screening (Acute) Vulvovaginitis (Acute) Transaminitis (Acute) Hypovitaminosis D (Acute) heart deceleration (Acute) Obese (Acute) Iron deficiency anemia (Acute) Encounter for supervision of normal in third trimester (Acute) COVID-19 (Acute) Pelvic pain in female (Acute) Positive test (Acute) Past Medical History Medical History Family planning advice Encounter for visit Encounter for IUD insertion Encounter for IUD removal Physical exam Encounter for preconception consultation Well woman exam with routine gynecological exam Transaminitis Hypovitaminosis D Obese Iron deficiency anemia COVID-19 Period has come late Positive test Family History Family History Mother HTN (hypertension) Father No problems noted. Surgical History Surgical History Postoperative state History of Social History Social History Household Members: Spouse and Family Housing: Apartment Alcohol intake: never Patient Tobacco Use Status: Never used Tobacco e-Cigarette/Vaping Use: Never Used Second Hand Smoke Exposure: No Use of substances other than those prescribed or required for medical reasons: No Advance Directives: No Advance Directives Information Provided: Yes service: No Current occupational status: employed Current occupational exposures/hazards: No Gender identity: Female Cognitive needs: No Hearing needs: No Vision needs: No Meds Allergies Allergy/AdvReac Type Severity Reaction Status Date / Time No Known Allergies Allergy Verified 12/15/23 10:19 [No Known Allergies*] Exam Pertinent Lab Results Pertinent Lab Results: Laboratory Tests 10/01/23 07:39 WBC 4.8 Hgb 13.3 Hct 39.3 Plt Count 220 Sodium 140 Potassium 3.7 Chloride 105 Carbon Dioxide 22 BUN 10 Creatinine 0.86 Assessment and Plan Assessment Anesthesia Assessment: Chart Reviewed Documented by User: Trupti Cohen MD 02/27/24 09:02 PMFSH Past Medical History Medical History Family planning advice Encounter for visit Encounter for IUD insertion Encounter for IUD removal Physical exam Encounter for preconception consultation Well woman exam with routine gynecological exam Transaminitis Hypovitaminosis D Obese Iron deficiency anemia COVID-19 Period has come late Positive test Family History Family History Mother HTN (hypertension) Father No problems noted. Surgical History Surgical History Postoperative state History of History of Problems with Anesthesia: No Social History Social History Household Members: Spouse and Family Housing: Apartment Alcohol intake: never Patient Tobacco Use Status: Never used Tobacco e-Cigarette/Vaping Use: Never Used Second Hand Smoke Exposure: No Use of substances other than those prescribed or required for medical reasons: No Advance Directives: No Advance Directives Information Provided: Yes service: No Current occupational status: employed Current occupational exposures/hazards: No Gender identity: Female Cognitive needs: No Hearing needs: No Vision needs: No Meds Allergies Allergy/AdvReac Type Severity Reaction Status Date / Time No Known Allergies Allergy Verified 12/15/23 10:19 [No Known Allergies*] Exam Airway Mallampati Class: II TM Dist: >3cm Neck ROM: Full Loose/Missing/Broken Teeth: No Heart: RRR Lungs: CTA Assessment and Plan Assessment Anesthesia Assessment: Anesthesia Plan Discussed Final Anesthetic Review History of Problems with Anesthesia: No NPO: Yes ASA Class: II Final Preanesthetic Review: Meds/Allgs Chart Reviewed, Consent Obtained/Reviewed and Anes Risks/Benef Reviewed Patient Risk: Low Procedure Risk: Intermediate Anesthetic Plan Anesthetic Plan: MAC: Disposition: Standard PACU
[2024-02-27 08:16] LABS: UPreg QC Valid YES; Urine Pregnancy NEGATIVE (NEGATIVE)
[2024-02-27 08:23] VITALS: BP 110/66; PULSE 84; RESP 18; TEMP 36.8; O2SAT 97; BMI 30.6
[2024-02-27] MEDS: Lactated Ringers 1,000 ML 100 ML IVCONT (08:42)
--- NOTE | 2024-02-27 08:55 | MHC.SHP ---
Pre-Procedural Eval Section A - 24 Hr Update-Section A only Date of Service: 02/27/24 Section B - Complete if H&P > 30 days Chief Complaint: Upper abdominal pain, unspecified Relevant Family History (Specify if Yes): No Relevant Social History: None Present Medications: see Short Stay Collaborative assessment Medical History: Significant History (Transaminitis Hypovitaminosis D Obese Iron deficiency anemia COVID-19 Period has come late Positive test) History of Previous Operations: Relevant previous surgery/procedure and date(s) (History of ) Allergies: Allergies Allergy/AdvReac Type Severity Reaction Status Date / Time No Known Allergies Allergy Verified 12/15/23 10:19 [No Known Allergies*] Review of Systems Sugical H&P ROS: Negative: Constitution, Cardiovascular, Respiratory, Neurological, Psychiatric, Hem-Onc, Allergic/Immunologic, Gastrointestinal, Genitourinary, Musculoskeletal, Integumentary, Endocrine and Eyes/Ears/Nose/Throat Exam Surgical H&P Exam: Normal: HEENT, Normal: Heart, Normal: Lungs, Normal: Extremities, Normal: Abdomen, Normal: Skin and Normal: Neurological Plan Diagnosis/Plan: Unchanged I have reviewed the history and physical and performed a pertinent physical examination on my patient. No changes have occurred unless specified. Time Spent With Patient Time: Total time managing care of this patient today ____ minutes.
--- NOTE | 2024-02-27 09:09 | W.PM.OPN ---
Operative Note Operative Note Date of Service: 02/27/24 Narrative: Procedure Description: EGD Indication: GERD Anesthesia: MAC FLEXIBLE TRANSORAL UPPER GASTROINTESTINAL ENDOSCOPY UPPER ENDOSCOPY Consent: Indications for the procedure and potential complications of bleeding, perforation, reaction to medications and missed diagnosis were discussed with the patient and informed consent was obtained. Instrument: Olympus GIF H 190 J mid size upper endoscope Monitoring: Vital signs and clinical assessment, continuous EKG monitoring, Pulse oximetry, Carbon Dioxide monitoring and blood pressure monitoring were done throughout the procedure. Procedure: The patient was placed in the left lateral decubitis position and pre-procedure medications were administered and a bite block was placed. The endoscope was inserted into the mouth and advanced under direct vision to the third part of duodenum. A careful inspection was made as the upper endoscope was withdrawn including a retroflexed examination of the proximal stomach; Findings and interventions are described below. Findings: Larynx:normal Esophagus: GE junction at 35 cm, diaphragm hiatus at 35 cm, midl edema and erythema at GEJ, bx taken from here and distal, proximal esophagus Stomach: mild erythema . Biopsies were obtained. Grade 2 flap valve on retroflexed examination of the cardia. Duodenum: Normal bulb and descending duodenum, Intervention: Biopsies as noted above, Impression/Findings: mild esophagitis PLAN: cont with PPI GERD precautions
[2024-02-27 09:25] VITALS: BP 85/40; PULSE 108; RESP 18; TEMP 36.7; O2SAT 99
[2024-02-27 09:40] VITALS: BP 105/58; PULSE 88; RESP 18; TEMP 36.7; O2SAT 97
== END 2024-02-27 10:01 | disposition home or self-care (01) ==
PROVIDERS: Nurse Practitioner; PCP Internal Medicine; Visit Provider Internal Medicine Gastroenterology
PROC: 0DJ08ZZ Inspection of Upper Intestinal Tract, Via Natural or Artificial Opening Endoscopic (ICD-10-PCS; CPT 43235; principal; 2024-02-27 10:30)
DX: K20.80 Other esophagitis without bleeding (principal); K21.9 Gastro-esophageal reflux disease without esophagitis; D50.9 Iron deficiency anemia, unspecified; Z79.899 Other long term (current) drug therapy
CPT/HCPCS: 43239; 81025; 88305; 88313; 88342; J2704

== ENCOUNTER → 2024-02-27 07:37 | Outpatient (BNV) | payer OTHER, SELFPAY | PROVIDERS: PCP Internal Medicine; Visit Provider Internal Medicine Gastroenterology | DX: K21.00 Gastro-esophageal reflux disease with esophagitis, without bleeding (principal) | CPT/HCPCS: 43239 ==

== ENCOUNTER 2024-03-12 10:13 | Outpatient (AMB) | payer OTHER, SELFPAY ==
[2024-03-12 10:21] VITALS: BP 114/61; PULSE 85; BMI 31.3
--- NOTE | 2024-03-12 10:21 | A.OFFVIS_ITS ---
Vital Signs 03/12/24 10:21 Height 5 ft 3 in Weight 176 lb 12.972 oz BMI 31.3 BP 114/61 Blood Pressure Location Lt brachial Position Sitting Pulse 85 Intake Visit Reasons: s/p egd Intake Note: Patient in office today s/p EGD. CC: Patient reports having epigastric pain and nausea sometimes. Denies other GI symptoms today. 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 For now she is satisfied to continue on the omeprazole 40 mg a day and I will se e her again after her EGD. Keep 03/12 appt EGD 02/27/24 Findings: Larynx:normal Esophagus: GE junction at 35 cm, diaphragm hiatus at 35 cm, midl edema and erythema at GEJ, bx taken from here and distal, proximal esophagus Stomach: mild erythema . Biopsies were obtained. Grade 2 flap valve on retroflexed examination of the cardia. Duodenum: Normal bulb and descending duodenum, Intervention: Biopsies as noted above, Impression/Findings: mild esophagitis PLAN: cont with PPI GERD precautions BIOPSY Received: 02/27/24 Diagnosis A. Stomach, biopsy: Gastric body mucosa with minimal chronic inactive gastritis; negative for H pylori, intestinal metaplasia and dysplasia. B. Gastroesophageal junction, biopsy: Squamocolumnar mucosa with mild inflammation; negative for intestinal metaplasia and dysplasia. C. Esophagus, distal, biopsy: Squamous mucosa with no specific change; no columnar mucosa present. D. Esophagus, proximal, biopsy: Squamous mucosa with no specific change; no columnar mucosa presen TODAY'S VISIT [place] #[place] has occasional HB but more mild and swallowing remains functional and improved. Add pepcid qhs to o2o 40mg qam ROV 6 weeks. [facility] Medical History Physical exam Encounter for supervision of normal in third trimester Family planning advice Encounter for visit Encounter for IUD insertion Encounter for IUD removal Encounter for preconception consultation Well woman exam with routine gynecological exam Transaminitis Hypovitaminosis D Obese Iron deficiency anemia COVID-19 Period has come late Positive test Surgical History History of esophagogastroduodenoscopy (EGD) Postoperative state History of Family History Mother HTN (hypertension) Father No problems noted. Social History Household Members: Spouse and Family Housing: Apartment Alcohol intake: never Patient Tobacco Use Status: Never used Tobacco e-Cigarette/Vaping Use: Never Used Second Hand Smoke Exposure: No service: No Current occupational status: employed Current occupational exposures/hazards: No Gender identity: Female Cognitive needs: No Hearing needs: No Vision needs: No Female Reproductive History Menstrual Age of Menarche: 12 Review of Systems Const Denies fatigue, Denies fever(s), Denies night sweats, Denies poor appetite and Denies weight loss Eyes Reports requires corrective lenses ENT Reports Normal hearing present, Denies dental pain, Denies dysphagia, Denies hearing loss, Denies mouth pain, Denies odynophagia, Denies throat swelling, Denies tongue swelling and Reports other (Dentition adequate) GI Details: Denies abdominal pain, Denies melena, Denies bloating, Denies hematochezia, Denies constipation, Denies GI cramping, Denies dysphagia, Denies excessive flatus, Denies early satiety, Denies heartburn, Denies diarrhea, Denies nausea, Denies odynophagia, Denies vomiting and Denies hematemesis Skin/Breast Denies pruritus, Denies lesions, Denies rash and Denies jaundice Neuro Reports Normal hearing present and Denies Abnormal speech present Endo Denies fatigue Aller/Immun Denies throat swelling and Denies tongue swelling Physical Exam Vital Signs: Last Vital Signs Pulse 85 03/12/24 10:21 BP 114/61 03/12/24 10:21 BMI result Body Mass Index 31.3 Const General: cooperative, no acute distress, well developed and well groomed Nutritional Appearance: well nourished, obese and overweight Orientation/consciousness: oriented to person, oriented to place and oriented to time Limitations: No language barrier, ambulation with cane, ambulation with walker and wheelchair HEENT Head: Yes normocephalic and Yes atraumatic Eyes General: appearance normal, both eyes and all related structures Pupils: Equal, round and reactive pupils present Neck Neck: Yes normal visual inspection and Yes no lymphadenopathy Thyroid: Thyroid normal Resp Effort & Inspection: normal respiratory effort and able to speak in complete sentences Auscultation: clear to auscultation bilaterally Cardio Rate: regular rate Rhythm: regular rhythm Heart sounds: Normal, physiologic split S2 sound present Peripheral pulses: radial pulses present and posterior tibial pulses present GI Inspection: No distended and No Abdominal panniculus present Palpation (GI): Soft to palpation, nontender, no guarding, not rigid, No hepatosplenomegaly present and Hepatosplenomegaly present Percussion: Yes normal to percussion Auscultation: normal bowel sounds Rectal Exam - Female: deferred Skin General skin exam: no rashes or lesions noted, turgor normal, skin not dry, no jaundice, No spider nevi and no striae Rashes: no rashes Nails: normal Neuro General: oriented to person, oriented to place and oriented to time Cranial nerves: Yes Equal, round and reactive pupils present and Yes Normal hearing present Speech: No Abnormal speech present Extrem General: Yes normal to inspection, No clubbing, No cyanosis and No edema Psych Thought process: Normal thought process present and not confabulating Thought content: Normal thought content present Insight: Good insight present (Psych) Judgement: Good judgement present (Psych) Results Reviewed Results Reviewed: EGD 02/27/24 Findings: Larynx:normal Esophagus: GE junction at 35 cm, diaphragm hiatus at 35 cm, midl edema and erythema at GEJ, bx taken from here and distal, proximal esophagus Stomach: mild erythema . Biopsies were obtained. Grade 2 flap valve on retroflexed examination of the cardia. Duodenum: Normal bulb and descending duodenum, Intervention: Biopsies as noted above, Impression/Findings: mild esophagitis PLAN: cont with PPI GERD precautions BIOPSY Received: 02/27/24 Diagnosis A. Stomach, biopsy: Gastric body mucosa with minimal chronic inactive gastritis; negative for H pylori, intestinal metaplasia and dysplasia. B. Gastroesophageal junction, biopsy: Squamocolumnar mucosa with mild inflammation; negative for intestinal metaplasia and dysplasia. C. Esophagus, distal, biopsy: Squamous mucosa with no specific change; no columnar mucosa present. D. Esophagus, proximal, biopsy: Squamous mucosa with no specific change; no co lumnar mucosa presen Assessment & Plan Assessment & Plan (1) Upper abdominal pain: Code(s): R10.10 - Upper abdominal pain, unspecified Category: Medical (2) Chronic GERD: Code(s): K21.9 - Gastro-esophageal reflux disease without esophagitis Category: Medical Plan [place] #[place] [employer] has occasional HB but more mild and swallowing remains functional and improved. Add pepcid qhs to o2o 40mg qam ROV 6 weeks. Medications: New famotidine (Pepcid) 40 mg PO BEDTIME 30 tabs 6RF K21.9 - Gastro-esophageal reflux disease without esophagitis Refilled omeprazole 40 mg PO DAILY 30 caps 6RF 30 days Coding Level of Care Code Est Pt Level 3 (23030) Diagnoses Upper abdominal pain R10.10 Chronic GERD K21.9
== END 2024-03-12 11:40 | disposition home or self-care (01) ==
PROVIDERS: PCP Internal Medicine; Visit Provider Nurse Practitioner
DX: R10.10 Upper abdominal pain, unspecified (principal); K21.9 Gastro-esophageal reflux disease without esophagitis
CPT/HCPCS: 99213

== ENCOUNTER → 2024-03-12 10:13 | Outpatient (BNVA) | payer OTHER, SELFPAY | PROVIDERS: PCP Internal Medicine; Visit Provider Nurse Practitioner | DX: R10.10 Upper abdominal pain, unspecified (principal); K21.9 Gastro-esophageal reflux disease without esophagitis | CPT/HCPCS: 99212 ==

== ENCOUNTER 2024-04-13 14:44 | Emergency (ER) | payer SELFPAY ==
--- NOTE | ~2024-04-13 | US_ITS ---
EXAMINATION: US OBSTETRICAL ULTRASOUND CLINICAL INFORMATION: Abdominal pain, , LMP 621 COMPARISON: Pelvic ultrasound the right 2021 LMP: 02/09/2024. Gestational age by maternal dates is 9 weeks 1 day. Estimated date of delivery by maternal dates is 11/15/2024. TECHNIQUE: Ultrasound of the maternal pelvis is performed using transabdominal transducer. M-mode Doppler is also performed. FINDINGS: There is a single intrauterine gestational sac with visible yolk sac, embryo/fetus, and cardiac activity. There is no significant subchorionic hemorrhage or hematoma. HR: 172 beats per minute. CRL (crown rump length): 2.67 cm (19 weeks 4 days +/- 4 days). DANIEL (estimated date of delivery): 11/15/2024 +/- 4 days. MATERNAL ADNEXA: The right maternal ovary measures 2.9 x 1.7 x 1.7 cm. Possible corpus luteum measuring 1.5 x 1 x 1.2 cm The left maternal ovary measures 3.5 x 1.1 x 1.8 cm. There is no significant maternal adnexal mass. No maternal pelvic ascites. US/US OB <= 14 weeks fetus IMPRESSION: 1. Single intrauterine gestation with ultrasound gestational age of 9 weeks 4 days +/- 4 days. 2. Estimated date of delivery is 11/15/2024 +/- 4 days. 3. No maternal adnexal mass or pelvic ascites. Electronically signed by: Robel Ch MD 04/13/2024 06:12 PM EDT
[2024-04-13 14:55] VITALS: BP 113/61; PULSE 89; RESP 18; TEMP 36.7; O2SAT 99; BMI 29.8
--- NOTE | 2024-04-13 14:55 | ED_ITS ---
HPI - Abdominal Pain General Chief Complaint: Abdominal Pain Stated Complaint: preg+ , abd pain, vomiting Time Seen by Provider: 04/13/24 16:36 Source: patient and senior account clerk (all interactions with this patient were facilitated with an [facility] tag stringer) Mode of arrival: ambulatory Limitations: language barrier (all interactions with this patient were facilitated with an [facility] tag stringer) History of Present Illness ED Provider: Angelica Snyder PA-C HPI narrative: Patient is a 33 year old assigned female at with a history of GERD presenting to the emergency department today with nausea, vomiting, and abdominal pain. Patient states that over the last 2 weeks she has had nausea, vomiting, and abdominal pain. Patient denies any dizziness, lightheadedness, fever, chills, blurry vision, double vision, loss of vision, chest pain, difficulty breathing, shortness of breath, back pain, night sweats, pain with urination, increased urinary frequency, increased urinary urgency, blood in her urine or stool, syncope or a near syncopal episode, recent trauma or falls, bowel incontinence, bladder incontinence, or any other complaints at this time. MD elicited complaint: abdominal pain Onset (ago): week(s) (2) Exacerbating factors: nothing Relieving factors: nothing Associated symptoms: nausea and vomiting Related Data Previous Rx's ?Medication ?Instructions ?Recorded cholecalciferol (vitamin D3) 50 50 mcg PO DAILY 90 days #90 caps 04/03/23 mcg (2,000 unit) capsule loperamide 2 mg tablet (Imodium 2 mg PO Q4H PRN loose stool #20 10/01/23 A-D) tabs famotidine 40 mg tablet (Pepcid) 40 mg PO BEDTIME #30 tabs 03/12/24 omeprazole 40 mg capsule,delayed 40 mg PO DAILY 30 days #30 caps 03/12/24 release vit no.95-ferrous 1 tab PO DAILY #30 tabs 04/13/24 fumarate 28 mg-folic acid 800 mcg tablet ( Multivitamins) pyridoxine (vitamin B6) 10 mg 10 mg PO DAILY #14 tabs 04/13/24 tablet Allergies Allergy/AdvReac Type Severity Reaction Status Date / Time No Known Allergies Allergy Verified 04/13/24 14:57 [No Known Allergies*] Review of Systems Constitutional: Reports no additional constitutional complaints, Denies chills, Denies fever(s) and Denies night sweats Eyes: Reports no additional eye complaints, Denies blurry vision, Denies change in vision, Denies diplopia, Denies eye discharge, Denies loss of vision and Denies eye pain Denies dizziness Cardiovascular: Reports no additional cardiovascular complaints, Denies chest pain, Denies lightheadedness, Denies Loss of Consciousness and Denies dyspnea Respiratory: Reports no additional respiratory complaints and Denies dyspnea Gastrointestinal: Reports no additional gastrointestinal complaints, Reports abdominal pain, Denies melena, Denies hematochezia, Denies change in bowel habits, Denies change in stool character, Reports nausea and Reports vomiting Genitourinary: Denies hematuria, Denies urinary frequency, Denies dysuria, Denies urinary incontinence, Denies urinary hesitancy and Denies urinary urgency Musculoskeletal: Reports no additional musculoskeletal complaints, Denies numbness and Denies tingling Denies dizziness, Denies loss of vision, Denies numbness and Denies tingling Psychiatric: Reports no additional psychiatric complaints Endocrine: Reports no additional endocrine complaints Hematologic/Lymphatic: Reports no additional hematologic/lymphatic complaints Allergic/Immunologic: Reports no additional allergic/immunologic complaints [facility] Past Medical History Attestation statement: The following information was validated with the patient. Source: old records reviewed and nursing notes reviewed Medical History Encounter for supervision of normal in third trimester Family planning advice Encounter for visit Encounter for IUD insertion Encounter for IUD removal Physical exam Encounter for preconception consultation Well woman exam with routine gynecological exam Transaminitis Hypovitaminosis D Obese Iron deficiency anemia COVID-19 Period has come late Positive test Surgical History History of esophagogastroduodenoscopy (EGD) Postoperative state History of Family History Family History Mother HTN (hypertension) Father No problems noted. Social History Social History Household Members: Spouse and Family Housing: Apartment Alcohol intake: never Patient Tobacco Use Status: Never used Tobacco Smoked in Last 30 Days: No e-Cigarette/Vaping Use: Never Used Second Hand Smoke Exposure: No Advance Directives: No Advance Directives Information Provided: No Do you have a plan to hurt others: No Plan Patient : Yes service: No Current occupational status: employed Current occupational exposures/hazards: No Gender identity: Female Cognitive needs: No Hearing needs: No Vision needs: No Physical Exam ED Vital Signs: Vital Signs - 24 hr 04/13/24 14:55 04/13/24 16:46 04/13/24 18:00 Temperature 98.0 F 98.7 F 98.2 F Pulse Rate 89 94 87 Respiratory Rate 18 18 18 Blood Pressure 113/61 117/71 108/64 Pulse Oximetry 99 100 100 Oxygen Delivery Method Room Air Room Air Room Air 04/13/24 18:50 Temperature 98.2 F Pulse Rate 87 Respiratory Rate 18 Blood Pressure 108/64 Pulse Oximetry 100 Oxygen Delivery Method Room Air BMI result Body Mass Index 29.8 Const General: cooperative, no acute distress, alert and awake Nutritional Appearance: well nourished Orientation/consciousness: patient oriented x3 Limitations: no limitations HENMT Head: Yes normal to inspection and Yes atraumatic Ears: hearing grossly normal bilaterally and external ears normal General nose exam: Normal external nose present, no nasal discharge noted and no epistaxis Face and sinus: Yes normal facial exam, No abrasion and No laceration Mouth: Normal oral and palatal mucosa present, no drooling and no muffled voice Eyes General: appearance normal, both eyes and all related structures Periorbital: periorbital findings normal Eyelids: Yes eyelids normal Conjunctivae: conjunctivae normal Pupils: Equal, round and reactive pupils present EOM: EOMs intact bilaterally Neck Neck: Yes normal visual inspection, Yes full ROM and Yes no lymphadenopathy Chest Chest palpation & inspection: normal inspection of the chest Resp Effort & Inspection: normal respiratory effort and able to speak in complete sentences GI Inspection: Yes normal to inspection Palpation (GI): Soft to palpation, not firm, nontender and no guarding Neuro General: patient oriented x3 and moves all extremities Cranial nerves: Yes Equal, round and reactive pupils present Cognition (Neuro): normal cognition Extrem General: Yes normal to inspection, Yes full ROM and Yes capillary refill normal Psych Appearance: grossly normal Mental Status: mental status grossly normal Affect: normal affect Attitude: cooperative Thought process: Normal thought process present Thought content: Normal thought content present Insight: Good insight present (Psych) Course Course Course Narrative: This is a rapid medical exam. Deferred additional HPI, ROS, PE to primary provider. 33 yo female here with vomiting, lower abdominal pain, weakness x 2 weeks. Currently but has not had any care. Has appt in April in [facility] ([facility]) at [place]. LMP 02/08 +vaginal discharge. No vag bleeding. SIDNEY Spear APRN Medical Decision Making Medical Decision Making [facility] Narrative: Patient is a 33 year old assigned female at with a history of GERD presenting to the emergency department today with abdominal pain, nausea, and vomiting. Patient's physical exam was unremarkable. Patient's blood work showed an elevated HCG but was otherwise unremarkable. Patient's US showed a single intrauterine measuring 9 weeks and 4 days. I explained my physical exam findings as well as all test results to the patient. I answered all questions asked by the patient. I stressed the importance of the patient taking her medication as directed (either prescribed or as the over the counter packaging recommends). I stressed the importance of the patient following up with her primary care provider and an OBGYN. I stressed the importance of the patient returning to the emergency department immediately if her symptoms were to worsen or if she were to develop any dizziness, shortness of breath, difficulty breathing, chest pain, blurry vision, loss of vision, nausea, vomiting, abdominal pain, fever, chills, back pain, or any other complaints. Patient verbalized agreement and understanding with this treatment plan and discharge. Differential Diagnosis Differential Diagnoses: The differential diagnosis associated with the presentation includes Abdominal pain Nausea Vomiting Admission/Observation Consideration of admission/observation: Escalation of care including admission/observation considered Patient would have been admitted to the hospital had her work up had any findings where hospital admission was appropriate and her clinical presentation warranted hospital admission. Lab Data [facility] Lab Attestation statement: I reviewed the patient's lab results. My interpretation of these results are in the [facility] Rationale portion of this note. 04/13/24 15:12 04/13/24 15:12 Labs: Lab Results 04/13/24 04/13/24 Range/Units 15:12 18:41 WBC 11.2 H (4.8-10.8) X10*3/uL RBC 4.30 (4.20-5.50) X10*6/uL Hgb 12.9 (12.0-16.0) g/dl Hct 37.1 (37.0-47.0) % MCV 86.3 (80.0-98.0) fL MCH 30.0 (27.0-33.0) pg MCHC 34.8 (31.0-35.0) g/dl RDW 12.4 (11.0-16.0) % Plt Count 263 (160-400) X10*3/uL MPV 10.0 (9.4-12.3) fL Immature Gran % (Auto) 0.3 (0.0-0.4) % Neut % (Auto) 74.5 H (45-73) % Lymph % (Auto) 20.2 (20-40) % [place] % (Auto) 4.3 (2-11) % Eos % (Auto) 0.4 (0-4) % Baso % (Auto) 0.3 (0-2) % Lymph # (Auto) 2.3 (1.2-4.9) X10*3/uL [place] # (Auto) 0.5 (0.1-1.2) X10*3/uL Eos # (Auto) 0.0 (0.0-0.4) X10*3/uL Baso # (Auto) 0.0 (0.0-0.2) X10*3/uL Abs Immat Gran (auto) 0.03 (0.00-0.03) X10*3/uL Absolute Neuts (auto) 8.3 (2.0-8.3) x10*3/uL Absolute Nucleated RBC 0.000 (0.0-0.012) X10*3/uL Nucleated RBC % (auto) 0.0 (0.0-0.2) /100WBC Sodium 139 (135-145) mmol/L Potassium 3.8 (3.3-5.1) mmol/L Chloride 106 (96-108) mmol/L Carbon Dioxide 22 (22-29) mmol/L Anion Gap 15 (12-20) BUN 10 (9-16) mg/dL Creatinine 0.76 (0.5-1.4) mg/dL Estim Creat Clear Calc 104.8 Estimated GFR > 60 Random Glucose 88 (60-115) mg/dL Calcium 10.3 H D (8.4-10.2) mg/dL Total Bilirubin 0.4 (0.0-1.0) mg/dL Direct Bilirubin 0.1 (0.0-0.5) mg/dL AST 27 (5-31) U/L ALT 79 H (0-31) U/L Alkaline Phosphatase 93 (39-117) U/L Total Protein 8.5 H (6.5-8.0) g/dL Albumin 4.8 (3.5-5.0) g/dL Beta HCG, Quant > 249388 mIU/mL Urine Color Yellow Urine Appearance Clear Urine pH 6.0 (5.0-9.0) Ur Specific [place] >= 1.030 H (1.005-1.025) Urine Protein 30 (1+) H (Neg-Trace) mg/dL Urine Glucose (UA) Negative (Negative) mg/dL Urine Ketones 80 (Negative) mg/dL Urine Blood Negative (Negative) Urine Nitrite Negative (Negative) Ur Leukocyte Esterase Negative (Negative) Urine RBC 0-2 (0-2) /HPF Urine WBC 0-5 (0-5) /HPF Ur Squamous Epith Cells 0-2 (0-2) /HPF Urine Bacteria None Seen (None Seen) Hyaline Casts 0-2 (0-2) /LPF Urine Test POSITIVE H (NEGATIVE) Chlam trachomat DNA PCR NOT DETECTED (Not Detect.) N.gonorrhoeae DNA (PCR) NOT DETECTED (Not Detect.) Independent Interpretation I performed an independent interpretation of an: Ultrasound Interpretation: My interpretation is in agreement with the radiologist's impression of this imaging study. - EXAMINATION: US OBSTETRICAL ULTRASOUND CLINICAL INFORMATION: Abdominal pain, , LMP 621 COMPARISON: Pelvic ultrasound the right 2021 LMP: 02/09/2024. Gestational age by maternal dates is 9 weeks 1 day. Estimated date of delivery by maternal dates is 11/15/2024. TECHNIQUE: Ultrasound of the maternal pelvis is performed using transabdominal transducer. M-mode Doppler is also performed. FINDINGS: There is a single intrauterine gestational sac with visible yolk sac, embryo/fetus, and cardiac activity. There is no significant subchorionic hemorrhage or hematoma. HR: 172 beats per minute. CRL (crown rump length): 2.67 cm (19 weeks 4 days +/- 4 days). DANIEL (estimated date of delivery): 11/15/2024 +/- 4 days. MATERNAL ADNEXA: The right maternal ovary measures 2.9 x 1.7 x 1.7 cm. Possible corpus luteum measuring 1.5 x 1 x 1.2 cm The left maternal ovary measures 3.5 x 1.1 x 1.8 cm. There is no significant maternal adnexal mass. No maternal pelvic ascites. US/US OB <= 14 weeks fetus IMPRESSION: 1. Single intrauterine gestation with ultrasound gestational age of 9 weeks 4 days +/- 4 days. 2. Estimated date of delivery is 11/15/2024 +/- 4 days. 3. No maternal adnexal mass or pelvic ascites. Electronically signed by: Robel Ch MD 04/13/2024 06:12 PM EDT Dictated By: Robel Ch MD Signed By: Electronically signed by Robel Ch MD 04/13/24 181 Radiology Impression Discussion of test interpretation with radiology: I have reviewed the radiologist's reading. Discharge Plan Discharge Clinical Impression: Patient Disposition: Home, Self-Care Instructions: (ED) Additional Instructions: Call to establish and follow up with an OBGYN. Llama para establecer y hacer seguimiento con un ginec?logo obstetra. Follow up with your primary care provider. Return to the emergency department immediately if your symptoms worsen or if you develop any dizziness, shortness of breath, difficulty breathing, chest pain, blurry vision, loss of vision, nausea, vomiting, abdominal pain, fever, chills, back pain, or any other complaints. Criss?seguimiento?con mclaughlin m?dico de atenci?n primaria. Acuda inmediatamente al servicio de urgencias si smita s?ntomas empeoran o si presenta falta de aliento, dificultad para respirar, dolor tor?cico, mareos, aturdimiento, dolor de espalda, dolor abdominal, fiebre, escalofr?os o cualquier otro s?ntoma. Portal del paciente Si usted no esta inscrito en el portal de pacientes de [facility] y [facility], recibira judy invitacion de inscripcion despues de mclaughlin visita al [facility] o al [facility] via correo electronico. Tambien puede inscribirse voluntariamente en el portal de pacientes visitando nuestra pagina web: [email or web address] ([email or web address]/portal La siguiente informacion sera requerida para acceder al portal: - Mclaughlin goldie de historia medica de [facility] - Mclaughlin direccion de correo electronico personal - Nombre - Fecha de nacimiento Capacidades: Las siguientes capacidades estan disponibles en el portal de pacientes: - Enviar mensajes a algunos doctores - Verificar proximas citas - Acceso a mclaughlin historial de mary, registro medico e historial de visitas - Haroon las condiciones actuales y alergias haroon procedimientos y resultados del laboratorio - Haroon smita medicamentos, incluyendo las pautas - Efectos secundarios y precauciones - Completar o llenar formularios / cuestionarios de - Citas solicitadas por mclaughlin doctor - Leer los resumenes de reportes medicos de smita visitas y procedimientos [place] acceder a la aplicacion movil: - [employer] [facility] en la [employer] o [employer] - Descargue la aplicacion - [facility] - Ingrese mclaughlin nombre de usuario / Contrasena Prescriptions: New PNV cmb#95-ferrous fumarate-FA [ Multivitamins] 28 mg iron- 800 mcg tablet 1 tab PO DAILY Qty: 30 0RF pyridoxine (vitamin B6) 10 mg tablet 10 mg PO DAILY Qty: 14 0RF No Action cholecalciferol (vitamin D3) 50 mcg (2,000 unit) capsule 50 mcg PO DAILY 90 Days Qty: 90 1RF loperamide [Imodium A-D] 2 mg tablet 2 mg PO Q4H PRN (Reason: loose stool) Qty: 20 0RF famotidine [Pepcid] 40 mg tablet 40 mg PO BEDTIME Qty: 30 6RF omeprazole 40 mg capsule,delayed release(DR/EC) 40 mg PO DAILY 30 Days Qty: 30 6RF Referrals: Delfina Marie MD [Primary Care Provider] - Edi Jenkins MD [Physician] - (Call to establish and follow up with an OBGYN. [place] para establecer y seguir con un ginec?logo obstetra) Stand Alone Forms: Work/School Release Interventions: ED Discharge Assessment Last Done: 04/13/24 18:50 Discharge Date/Time: 04/13/24 19:19 Print Language: Bur[place]ian
[2024-04-13 15:17] LABS: MANUAL DIFF FLAG NO
[2024-04-13 15:18] LABS: Basophils Percent Auto 0.3 % (0-2); Eosinophils Percent Auto 0.4 % (0-4); Hematocrit 37.1 % (37.0-47.0); Hemoglobin 12.9 g/dl (12.0-16.0); Imm Gran Abs Auto 0.03 X10*3/uL (0.00-0.03); Imm Gran Pct Auto 0.3 % (0.0-0.4); Lymphocytes Absolute Auto 2.3 X10*3/uL (1.2-4.9); Lymphocytes Percent Auto 20.2 % (20-40); Mean Corpuscular HGB Conc 34.8 g/dl (31.0-35.0); Mean Corpuscular Volume 86.3 fL (80.0-98.0); Monocytes Absolute Auto 0.5 X10*3/uL (0.1-1.2); Monocytes Percent Auto 4.3 % (2-11); Neutrophils Absolute Auto 8.3 x10*3/uL (2.0-8.3); Neutrophils Percent Auto 74.5 % (45-73); Platelet Count 263 X10*3/uL (160-400); Red Cell Distribution Width 12.4 % (11.0-16.0); White Blood Count 11.2 X10*3/uL (4.8-10.8)
[2024-04-13 15:19] LABS: Appearance Urine Clear; Color Urine Yellow; Glucose Urine UA Negative (Negative); Leukocyte Esterase Urine Negative (Negative); Nitrite Urine Negative (Negative); Specific Gravity - Urine >= 1.030 (1.005-1.025); UMIC TRIGGER UACC YES; Urine Blood Negative (Negative); Urine Ketones 80 mg/dL (Negative); Urine Protein 30 (1+) mg/dL (Neg-Trace)
[2024-04-13 15:20] LABS: UPreg QC Valid YES; Urine Pregnancy POSITIVE (NEGATIVE)
[2024-04-13 15:32] LABS: Bacteria Urine None Seen (None Seen); Hyaline Casts Urine 0-2 /LPF (0-2); RBC Urine 0-2 /HPF (0-2); Squamous Epithelial Cell Urine 0-2 /HPF (0-2); WBC Urine 0-5 /HPF (0-5)
[2024-04-13 15:38] LABS: Alanine Aminotransferase 79 U/L (0-31); Albumin Level 4.8 g/dL (3.5-5.0); Alkaline Phosphatase 93 U/L (39-117); Anion Gap 15 (12-20); Aspartate Amino Transferase 27 U/L (5-31); Bilirubin Direct 0.1 mg/dL (0.0-0.5); Bilirubin Total 0.4 mg/dL (0.0-1.0); Blood Urea Nitrogen 10 mg/dL (9-16); Calcium 10.3 mg/dL (8.4-10.2); Carbon Dioxide 22 mmol/L (22-29); Chloride 106 mmol/L (96-108); Creatinine Clr Calc Pharmacy 104.8; Estimated Glomerular Filt Rate > 60; Glucose Random 88 mg/dL (60-115); Potassium 3.8 mmol/L (3.3-5.1); Sodium 139 mmol/L (135-145); Total Protein 8.5 g/dL (6.5-8.0)
[2024-04-13 16:27] LABS: HCG Quantitative > 225000 mIU/mL
[2024-04-13 16:46] VITALS: BP 117/71; PULSE 94; RESP 18; TEMP 37.1; O2SAT 100
[2024-04-13 18:00] VITALS: BP 108/64; PULSE 87; RESP 18; TEMP 36.8; O2SAT 100
--- NOTE | 2024-04-13 18:22 | PC.NURSE ---
no active vomiting while in ED.
[2024-04-13 18:50] VITALS: BP 108/64; PULSE 87; RESP 18; TEMP 36.8; O2SAT 100
[2024-04-13 20:13] LABS: CT PCR NOT DETECTED (Not Detect.); NG PCR NOT DETECTED (Not Detect.)
[2024-04-14 09:39] LABS: Bacterial Vaginosis PCR NEGATIVE (Negative); Candida Group PCR NOT DETECTED (Not Detect); Candida glab krusei PCR NOT DETECTED (Not Detect); Trichomonas vaginalis PCR NOT DETECTED (Not Detect)
== END 2024-04-13 19:19 | disposition home or self-care (01) ==
PROVIDERS: Nurse Practitioner Family; Emergency Provider Emergency Medicine Emergency Medical Services; PCP Internal Medicine
DX: O21.9 Vomiting of pregnancy, unspecified (principal); O26.891 Other specified pregnancy related conditions, first trimester; N89.8 Other specified noninflammatory disorders of vagina; Z3A.09 9 weeks gestation of pregnancy
CPT/HCPCS: 0352U; 36415; 76801; 80048; 80076; 81001; 81025; 84702; 85025; 87491; 87591; 99284

== ENCOUNTER 2024-04-25 10:14 | Outpatient (AMB) | payer OTHER, SELFPAY ==
[2024-04-25 10:43] VITALS: BP 108/72; BMI 30.3
--- NOTE | 2024-04-25 10:43 | MHC.PC.OV ---
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 Accompanied by: Self / Same As Patient Allergies No Known Allergies [No Known Allergies*] Allergy (Verified 04/25/24 11:04) Medication List - Last Reconciled 04/25/24 by Delfina Sen MD cholecalciferol (vitamin D3) 50 mcg PO DAILY 90 days famotidine (Pepcid) 40 mg PO BEDTIME omeprazole 40 mg PO DAILY 30 days PNV cmb#95-ferrous fumarate-FA 28 mg iron- 800 mcg ( Multivitamins) 1 tab PO DAILY pyridoxine (vitamin B6) 10 mg PO DAILY Tobacco use date assessed: 04/25/24 Dental Screening Dental Screen Date: 04/25/24 Did you have a dental visit in the last 12 months?: Yes Did you have a dental problem in the last 6 months where you did not have access to dental care?: No Was dental information given to patient?: Patient has dentist HPI HPI Comments History of Present Illness Details This is a 33-year-old female that comes for her physical exam. Pap smear done 2021 was normal. She is 10 weeks . No acute complaints. [facility] Medical History Physical exam Encounter for supervision of normal in third trimester Family planning advice Encounter for visit Encounter for IUD insertion Encounter for IUD removal Encounter for preconception consultation Well woman exam with routine gynecological exam Transaminitis Hypovitaminosis D Obese Iron deficiency anemia COVID-19 Period has come late Positive test Surgical History History of esophagogastroduodenoscopy (EGD) Postoperative state History of Family History Mother HTN (hypertension) Father No problems noted. Social History Household Members: Spouse and Family Housing: Apartment Alcohol intake: never Patient Tobacco Use Status: Never used Tobacco e-Cigarette/Vaping Use: Never Used Second Hand Smoke Exposure: No service: No Current occupational status: employed Current occupational exposures/hazards: No Gender identity: Female Cognitive needs: No Hearing needs: No Vision needs: No Female Reproductive History Menstrual Age of Menarche: 12 Questionnaire PHQ-9 Over the last 2 weeks, how often have you been bothered by any of the following problems? 1. Little interest or pleasure in doing things: not at all 2. Feeling down, depressed, or hopeless: not at all 3. Trouble falling or staying asleep, or sleeping too much: not at all 4. Feeling tired or having little energy: several days 5. Poor appetite or overeating: several days 6. Feeling bad about yourself - or that you are a failure or have let yourself or your family down: not at all 7. Trouble concentrating on things, such as reading the newspaper or watching television: not at all 8. Moving or speaking so slowly that other people could have noticed. Or the opposite - being so fidgety or restless that you have been moving around a lot more than usual: not at all 9. Thoughts that you would be better off or of hurting yourself in some way: not at all Total score: 2 Depression Screening Interpretation: Positive Depression Screening Follow-up: Existing condition and Follow-up Visit Requested Depression Screening Done: Yes 72722 - PHQ-9 Billing: Yes Source: Developed by Drs. Evan Bustillo, Mira Villa, Ignacio White and colleagues, with an educational roosevelt from [employer]. Thrive Questionnaire Date Thrive assessed: 04/25/24 I am a: Patient What is your living situation today?: I have a steady place to live Within the past 12 months, did the food you bought not last and you didn't have the money to get more?: I choose not to answer this question Within the past 12 months, did you worry whether your food would run out before you got money to buy more?: Never true Do you have trouble paying for medicines?: No Do you have trouble getting transportation to medical appointments?: No Do you have trouble paying your heating and electricity bill?: No Do you have trouble taking care of your child, family member or friend?: No Do you have trouble with day-to-day activities such as bathing, preparing meals, shopping, managing finances, etc.?: No Are you currently unemployed and looking for a job?: No Are you interested in more education?: I choose not to answer this question Please select the resources that you would like help with: None Currently or been in a relationship where the following occur: No concerns reported THRIVE Score: 0 AUDIT C Alcohol Use Questionnaire (AUDIT-C) 1. How often do you have a drink containing alcohol?: Never Total Score: 0 Score Reviewed/Action Taken: No KAILEY-7 AMB Questionnaire KAILEY-7 Date KAILEY - 7 assessed: 04/25/24 Feeling nervous, anxious, or on edge: 0 = Not at all Not being able to stop or control worryin = Not at all Worrying too much about different things: 0 = Not at all Trouble relaxin = Not at all Being so restless that it is hard to sit still: 0 = Not at all Becoming easily annoyed or irritable: 0 = Not at all Feeling afraid as if something awful might happen: 0 = Not at all Total KAILEY-7 score (0-4 normal; 5-9 mild; 10-14 moderate; 15-21 severe): 0 Source: Developed by Drs. Evan Bustillo, Mira Villa, Ignacio White and colleagues, with an educational roosevelt from [employer]. Review of Systems Const All systems reviewed & are unremarkable except as noted in HPI and below Card Denies chest pain at rest, Denies chest pain with activity, Denies edema, Denies irregular heart rhythm, Denies claudication, Denies dyspnea, Denies dyspnea on exertion, Denies orthopnea, Denies paroxysmal nocturnal dyspnea and Denies slow heart rate Resp Denies cough, Denies dyspnea and Denies dyspnea on exertion GI Denies abdominal pain, Denies change in bowel habits, Denies excessive flatus, Denies nausea and Denies vomiting Denies urinary incontinence, Denies urinary hesitancy and Denies urinary urgency Musc Denies abnormal gait, Denies atrophy, Denies deformity and Denies limited range of motion Skin/Breast Denies bleeding lesions, Denies changing lesions and Denies rash Neuro Denies abnormal gait, Denies behavioral changes and Denies lack of coordination Psych Denies behavioral changes Physical exam (Primary Care) Vital Signs: Last Vital Signs BP 108/72 04/25/24 10:43 BMI result Body Mass Index 30.3 Tobacco/Smoking Status: Tobacco use Status Tobacco use date assessed 04/25/24 04/25/24 10:48 Patient Tobacco Use Status Never used Tobacco 04/25/24 10:48 e-Cigarette/Vaping Use Never Used 04/25/24 10:48 PHQ-9: PHQ-9 Score PHQ-9: Total score 2 04/25/24 10:48 Depression Screening Interpretation: Positive Depression Screening Follow-up: Existing condition and Follow-up Visit Requested Thrive Assessment: Date of Thrive Assessment Date Thrive assessed 04/25/24 04/25/24 10:48 Currently or been in a relationship where the following occur: No concerns reported HENMT Head: Yes normal to inspection, Yes normocephalic and Yes atraumatic Ears: external ears normal Eyes General: appearance normal, both eyes and all related structures Eyelids: Yes eyelids normal Conjunctivae: conjunctivae normal Neck Neck: Yes normal visual inspection and Yes supple Resp Effort & Inspection: normal respiratory effort Auscultation: clear to auscultation bilaterally Cardio Jugular venous distension: no JVD Rate: regular rate Rhythm: regular rhythm Heart sounds: S1 normal heart sound present and S2 normal heart sound present GI Inspection: Yes normal to inspection Palpation (GI): Soft to palpation and nontender Auscultation: normal bowel sounds Skin General skin exam: no rashes or lesions noted Neuro General: no focal motor deficits Extrem General: Yes full ROM Psych Appearance: grossly normal Assessment and Plan Assessment & Plan (1) Physical exam: Code(s): Z00.00 - Encounter for general adult medical examination without abnormal findings Plan: Repeat in a year. Orders: Orders Complete Blood Count Auto Diff Today D50.0 - Iron deficiency anemia secondary to blood loss (chronic), D64.9 - Anemia, unspecified IRON PROFILE Today D50.0 - Iron deficiency anemia secondary to blood loss (chronic), D64.9 - Anemia, unspecified Lipid Panel Today Z00.00 - Encounter for general adult medical examination without abnormal findings Vitamin D 25-OH Total Today E55.9 - Vitamin D deficiency, unspecified Comprehensive [place]. Panel Fast Today Z00.00 - Encounter for general adult medical examination without abnormal findings Coding Level of Care Code Est Pt Prev Care 18-39y(80177) Diagnoses Physical exam Z00.00 Time Spent (min) 30
== END 2024-04-25 11:17 | disposition home or self-care (01) ==
PROVIDERS: PCP Internal Medicine; Visit Provider Internal Medicine
DX: Z00.00 Encounter for general adult medical examination without abnormal findings (principal); E55.9 Vitamin D deficiency, unspecified; E66.9 Obesity, unspecified; Z68.30 Body mass index [BMI] 30.0-30.9, adult
CPT/HCPCS: 99395

== ENCOUNTER 2025-05-15 07:33 | Outpatient (REF) | payer OTHER, SELFPAY ==
[2025-05-15 09:15] LABS: MANUAL DIFF FLAG NO
[2025-05-15 09:25] LABS: Hematocrit 36.3 % (37.0-47.0); Hemoglobin 12.1 g/dl (12.0-16.0); Imm Gran Abs Auto 0.03 X10*3/uL (0.00-0.03); Imm Gran Pct Auto 0.3 % (0.0-0.4); Lymphocytes Absolute Auto 2.8 X10*3/uL (1.2-4.9); Mean Corpuscular HGB Conc 33.3 g/dl (31.0-35.0); Mean Corpuscular Hemoglobin 27.3 pg (27.0-33.0); Mean Corpuscular Volume 81.9 fL (80.0-98.0); NRBC Abs Auto 0.000 X10*3/uL (0.0-0.012); NRBC Pct Auto 0.0 /100WBC (0.0-0.2); Platelet Count 301 X10*3/uL (160-400); Red Blood Count 4.43 X10*6/uL (4.20-5.50); White Blood Count 9.9 X10*3/uL (4.8-10.8)
[2025-05-15 10:10] LABS: Albumin Level 5.0 g/dL (3.5-5.0); Anion Gap 9 (12-20); Calcium 10.1 mg/dL (8.4-10.2); Carbon Dioxide 30 mmol/L (22-29); Chloride 108 mmol/L (96-108); Cholesterol 145 mg/dL (<200); Potassium 4.4 mmol/L (3.3-5.1); Sodium 143 mmol/L (135-145); Total Protein 8.0 g/dL (6.5-8.0)
[2025-05-15 10:14] LABS: Alanine Aminotransferase 40 U/L (0-31); Alkaline Phosphatase 133 U/L (39-117); Aspartate Amino Transferase 29 U/L (5-31); Blood Urea Nitrogen 12 mg/dL (9-16); Estimated Glomerular Filt Rate > 60; HDL Cholesterol 37 mg/dL (>40); Triglycerides 118 mg/dL (<150)
== END 2025-05-15 07:34 | disposition home or self-care (01) ==
LOC: HO.LAB 07:33
PROVIDERS: PCP Internal Medicine; Visit Provider Internal Medicine
DX: Z00.00 Encounter for general adult medical examination without abnormal findings (principal); K21.9 Gastro-esophageal reflux disease without esophagitis; E55.9 Vitamin D deficiency, unspecified; E78.5 Hyperlipidemia, unspecified; Z79.899 Other long term (current) drug therapy
CPT/HCPCS: 36415; 80053; 80061; 82306; 85025; 96127; 99212; 99395

== ENCOUNTER 2025-05-15 07:33 | Outpatient (AMB) | payer OTHER, SELFPAY ==
--- OUTSIDE RECORDS SUMMARY | 2025-05-15 07:37 | XMS_ITS | Clinical Summary ---
Author Organization [facility] ity Address [address] [place] [address] Care Team Providers Care Wirer Name Role Phone Delfina Sen MD Primary Care Provider [phone] Surgical History Surgery Date Site/Laterality Comments OTHER SURGICAL HISTORY PROCEDURE: DENIES PREVIOUS SURGERY Medical History Medical History Date Comments Patient denies medical problems DX:Patient denies medical problems Family History Medical History Relation Name Comments No Known Problems Father No Known Problems Mother Relation Name Status Comments Father Alive Mother Alive Social History Tobacco Use Types Packs/Day Years Used Date Smoking Tobacco: Never Smokeless Tobacco: Never Alcohol Use Standard Drinks/Week Comments Never 0 (1 standard drink = 0.6 oz pur e alcohol) Comments Unknown Sex and Gender Information Value Date Recorded Sex Assigned at Not on file Legal Sex Female 12:48 AM EST Gender Identity Not on file Sexual Orientation Not on file Obstetrics History Plan of Treatment Health Maintenance Due Date Last Done Comments DTaP,Tdap,and Td Vaccines (1 - Tdap) 2011 Hepatitis B Vaccines (1 of 3 - 19+ 3-dose series) 2011 Cervical Cancer Screening: P ap Smear 2013 Depression Screening 08/21/2024 COVID-19 Vaccine (1 - 2023-2 5 season) 2025 Influenza Vaccine (#1) 2025 HIB Vaccines Aged Out No longer eligi ble based on patient's age to complete this topic HPV Vaccines Aged Out No longer eligi ble based on patient's age to complete this topic Hepatitis A Vaccines Aged Out No long er eligible based on patient's age to complete this topic IPV Vaccines Aged Out No longer eligi ble based on patient's age to complete this topic MMR Vaccines Aged Out No longer eligi ble based on patient's age to complete this topic Meningococcal ACWY Vaccine Aged Out N o longer eligible based on patient's age to complete this topic Meningococcal B Vaccine Aged Out No l onger eligible based on patient's age to complete this topic Pneumococcal Vaccine: Pediat rics (0 to 5 Years) and At-Risk Patients (6 to 49 Years) Aged Out No longer eligible b ased on patient's age to complete this topic RSV Immunization Patients Un eligio 20 months Aged Out No longer eligible b ased on patient's age to complete this topic Varicella Vaccines Aged Out No longer eligible based on patient's age to complete this topic Care Teams Wirer Relationship Specialty Start Date End Date Delfina Sen MD [address] [place] [address] , [address] [facility]: [facility] ALAN Sauceda PCP - General Internal Medicine 08/21/20
[2025-05-15 07:53] VITALS: BP 106/62; PULSE 85; O2SAT 99; BMI 33.1
--- NOTE | 2025-05-15 07:53 | MHC.PC.OV ---
Vital Signs 05/15/25 07:53 Height 5 ft 3 in Weight 187 lb BMI 33.1 BP 106/62 Blood Pressure Location Lt brachial Position Sitting Pulse 85 Pulse Source Pulse Oximeter Pulse Oximetry (%) 99 Oxygen Delivery Method Room Air Intake Visit Reasons: Annual P.E PHQ-9 needed. 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 Accompanied by: Self / Same As Patient Allergies No Known Allergies (No Known Allergies*) Allergy (Verified 05/15/25 08:48) Medication List - Last Reconciled 05/15/25 by Delfina Sen MD cholecalciferol (vitamin D3) 50 mcg PO DAILY 90 days famotidine (Pepcid) 40 mg PO BEDTIME omeprazole 40 mg PO DAILY 30 days PNV no.95-ferrous fumarate-FA 28 mg iron- 800 mcg ( Multivitamins) 1 tab PO DAILY pyridoxine (vitamin B6) 10 mg PO DAILY Tobacco use date assessed: 05/15/25 Dental Screening Dental Screen Date: 05/15/25 HPI HPI Comments History of Present Illness Details The patient is a 34-year-old female presenting for a physical examination. She has a history of chronic gastroesophageal reflux disease (GERD) and mild esophagitis, which was identified last year. She will be referred to gastroenterology for further management of her GERD. The patient is also managing obesity, with a body mass index (BMI) of 35. She has been advised to engage in diet and exercise to reduce her BMI to below 30. Additionally, she has a vitamin D deficiency and is currently taking vitamin D supplements. Her preventative care measures include being up to date with her Tdap vaccination, last administered in 2020, with the next due in 2030. She also had a Pap smear in 2021, which was negative for HPV, with the next screening recommended in 2026. [facility] Medical History Physical exam Encounter for supervision of normal in third trimester Family planning advice Encounter for visit Encounter for IUD insertion Encounter for IUD removal Encounter for preconception consultation Well woman exam with routine gynecological exam Transaminitis Hypovitaminosis D Obese Iron deficiency anemia COVID-19 Period has come late Positive test Surgical History History of esophagogastroduodenoscopy (EGD) Postoperative state History of Family History Mother HTN (hypertension) Father No problems noted. Social History Household Members: Spouse and Family Housing: Apartment Alcohol intake: never Patient Tobacco Use Status: Never used Tobacco Tobacco use type: Cigarette e-Cigarette/Vaping Use: Never Used Second Hand Smoke Exposure: No service: No Current occupational status: employed Current occupational exposures/hazards: No Gender identity: Female Cognitive needs: No Hearing needs: No Vision needs: No Female Reproductive History Menstrual Age of Menarche: 12 Questionnaire PHQ-9 Over the last 2 weeks, how often have you been bothered by any of the following problems? 1. Little interest or pleasure in doing things: not at all 2. Feeling down, depressed, or hopeless: not at all 3. Trouble falling or staying asleep, or sleeping too much: not at all 4. Feeling tired or having little energy: not at all 5. Poor appetite or overeating: not at all 6. Feeling bad about yourself - or that you are a failure or have let yourself or your family down: not at all 7. Trouble concentrating on things, such as reading the newspaper or watching television: not at all 8. Moving or speaking so slowly that other people could have noticed. Or the opposite - being so fidgety or restless that you have been moving around a lot more than usual: not at all 9. Thoughts that you would be better off or of hurting yourself in some way: not at all Total score: 0 Depression Screening Interpretation: Negative Depression Screening Done: Yes 31992 - PHQ-9 Billing: Yes Source: Developed by Drs. Evan Bustillo, Mira Villa, Ignacio White and colleagues, with an educational roosevelt from [employer]. Thrive Questionnaire Date Thrive assessed: 05/13/25 I am a: Patient What is your living situation today?: I have a steady place to live Within the past 12 months, did the food you bought not last and you didn't have the money to get more?: Never true Within the past 12 months, did you worry whether your food would run out before you got money to buy more?: Never true Do you have trouble paying for medicines?: No Do you have trouble getting transportation to medical appointments?: No Do you have trouble paying your heating and electricity bill?: No Do you have trouble taking care of your child, family member or friend?: No Do you have trouble with day-to-day activities such as bathing, preparing meals, shopping, managing finances, etc.?: No Are you currently unemployed and looking for a job?: No Are you interested in more education?: I choose not to answer this question Please select the resources that you would like help with: None Currently or been in a relationship where the following occur: I choose not to answer THRIVE Score: 0 AUDIT C Alcohol Use Questionnaire (AUDIT-C) 1. How often do you have a drink containing alcohol?: Never 3. How often do you have six or more drinks on one occasion?: Never Total Score: 0 Score Reviewed/Action Taken: No KAILEY-7 AMB Questionnaire KAILEY-7 Date KAILEY - 7 assessed: 05/15/25 Feeling nervous, anxious, or on edge: 0 = Not at all Not being able to stop or control worryin = Not at all Worrying too much about different things: 0 = Not at all Trouble relaxin = Not at all Being so restless that it is hard to sit still: 0 = Not at all Becoming easily annoyed or irritable: 0 = Not at all Feeling afraid as if something awful might happen: 0 = Not at all Total KAILEY-7 score (0-4 normal; 5-9 mild; 10-14 moderate; 15-21 severe): 0 Source: Developed by Drs. Evan Bustillo, Mira Villa, Ignacio White and colleagues, with an educational roosevelt from [employer]. KAILEY-7 Assessment Billing KAILEY-7 Assessment Tool: KAILEY-7 Assessment 95880 Review of Systems Const All systems reviewed & are unremarkable except as noted in HPI and below Card Denies chest pain at rest, Denies chest pain with activity, Denies edema, Denies irregular heart rhythm, Denies claudication, Denies dyspnea, Denies dyspnea on exertion, Denies orthopnea, Denies paroxysmal nocturnal dyspnea and Denies slow heart rate Resp Denies cough, Denies dyspnea and Denies dyspnea on exertion Physical exam (Primary Care) Vital Signs: Last Vital Signs Pulse 85 05/15/25 07:53 BP 106/62 05/15/25 07:53 Pulse Ox 99 05/15/25 07:53 Oxygen Delivery Method Room Air 05/15/25 07:53 BMI result Body Mass Index 33.1 BMI Assessment/Plan discussion: High BMI High, discussed plan: lifestyle, weight reduction, dietary and physical activity Tobacco/Smoking Status: Tobacco use Status Tobacco use date assessed 05/15/25 05/15/25 07:56 Patient Tobacco Use Status Never used Tobacco 05/15/25 07:56 Tobacco use type Cigarette 05/15/25 07:56 e-Cigarette/Vaping Use Never Used 05/15/25 07:56 PHQ-9: PHQ-9 Score PHQ-9: Total score 0 05/15/25 08:21 Depression Screening Interpretation: Negative Thrive Assessment: Date of Thrive Assessment Date Thrive assessed 05/13/25 05/15/25 07:56 Currently or been in a relationship where the following occur: I choose not to answer HENWV Head: Yes normal to inspection, Yes normocephalic and Yes atraumatic Ears: external ears normal Eyes General: appearance normal, both eyes and all related structures Eyelids: Yes eyelids normal Conjunctivae: conjunctivae normal Neck Neck: Yes normal visual inspection and Yes supple Resp Effort & Inspection: normal respiratory effort Auscultation: clear to auscultation bilaterally Cardio Jugular venous distension: no JVD Rate: regular rate Rhythm: regular rhythm Heart sounds: S1 normal heart sound present and S2 normal heart sound present GI Inspection: Yes normal to inspection Palpation (GI): Soft to palpation and nontender Auscultation: normal bowel sounds Skin General skin exam: no rashes or lesions noted Neuro General: no focal motor deficits Extrem General: Yes full ROM Psych Appearance: grossly normal Coding Level of Care Code Est Pt Level 3 (01934) Est Pt Prev Care 18-39y(16073) Diagnoses Physical exam Z00.00 Chronic GERD K21.9 Additional Codes PHQ-9 - 66520 - PHQ-9 Billing: Yes ([id number]) KAILEY-7 Assessment Billing - KAILEY-7 Assessment Tool: KAILEY-7 Assessment 46874 ([id number]) Time Spent (min) 33 Assessment & Plan Assessment & Plan (1) Physical exam: Code(s): Z00.00 - Encounter for general adult medical examination without abnormal findings Category: Medical (2) Chronic GERD: Code(s): K21.9 - Gastro-esophageal reflux disease without esophagitis Category: Medical Plan Plan 1. Physical exam Repeat in a year. 1. Chronic Gastroesophageal Reflux Disease (Gerd) The patient will be referred to gastroenterology for further evaluation and management of her chronic gastroesophageal reflux disease. 2. Obesity The patient has been advised to engage in dietary modifications and regular physical activity to reduce her body mass index to below 30. 3. Vitamin D Deficiency The patient is currently on vitamin D supplementation to address her deficiency. Orders: Orders Lipid Panel Today E78.5 - Hyperlipidemia, unspecified Comprehensive [place]. Panel Fast Today K21.9 - Gastro-esophageal reflux disease without esophagitis Complete Blood Count Auto Diff Today K21.9 - Gastro-esophageal reflux disease without esophagitis Vitamin D 25-OH Total Today E55.9 - Vitamin D deficiency, unspecified Referrals Gastroenterology Referral K21.9 - Gastro-esophageal reflux disease without esophagitis
== END 2025-05-15 08:57 | disposition home or self-care (01) ==
LOC: HO.HMCH 07:34
PROVIDERS: PCP Internal Medicine; Visit Provider Internal Medicine
DX: Z00.00 Encounter for general adult medical examination without abnormal findings (principal); K21.9 Gastro-esophageal reflux disease without esophagitis